=== PATIENT | male | born 1945 | race African-American/Black ===

== ENCOUNTER 2020-04-10 03:21 | Inpatient (IN) | payer MEDICARE, MEDICAID ==
[2020-04-10 03:56] LABS: #Eosinphils 0.3 thou/uL (0.0-0.7); #Lymphocytes 1.2 thou/uL (1.20-3.40); #Monocytes 0.5 thou/uL (0.11-0.59); #Neutrophils 3.3 thou/uL (1.40-6.50); %Basophils 0.9 % (0.0-1.0); %Eosinophils 5.4 % (0.0-10.0); %Lymphocytes 21.7 % (21.0-51.0); %Monocytes 10.1 % (0.0-10.0); %Neutrophils 61.9 % (42.0-75.0); Hemoglobin 9.3 g/dL (14.0-18.0); Mean Corpuscular HGB CONC 32.3 g/dL (32.0-36.0); Mean Corpuscular Hemoglobin 28.6 pg (27.0-31.0); Mean Corpuscular Volume 88.3 fL (78.0-98.0); Mean Platelet Volume 7.6 fL (7.4-10.4); Platelet Count 196 thou/uL (130-400); RBC Distribution Width 13.1 % (11.5-14.5); Red Blood Cell (RBC) Count 3.24 mill/uL (4.70-6.10); White Blood Cell (WBC) Count 5.4 thou/uL (4.8-10.8)
[2020-04-10 04:32] LABS: Bilirubin Negative (Negative); Blood, Urine Trace (Negative); Clarity Clear (Clear); Glucose, Urine (Dipstick) Normal (Negative); Leukocyte 500 Leu/uL (Negative); Mucous/LPF Rare LPF (<2+); Nitrite 2+ (Negative); Protein, Urine (Dipstick) Negative (Neg-Trace); Squamous Epithelial 0-3 HPF (0-3); Urobilinogen Normal mg/dL (Less than 2); WBC/HPF Greater than 50 HPF (0-3)
[2020-04-10 04:33] LABS: Bacteria/HPF 1+ HPF (None Seen)
[2020-04-10] MEDS ORDERED: cefTRIAXone\\ROCEPHIN 2 GM VIAL ONE (05:00)
[2020-04-10] MEDS ORDERED: Acetaminophen 650 MG Suppository PR PRN (05:39)
[2020-04-10] MEDS ORDERED: Acetaminophen 325 MG TAB PO PRN (05:39)
--- NOTE | 2020-04-10 05:52 | PDOC.HHP ---
Hospitalist HPI - History of Present Illness altered mental status History of Present Illness: Case of an 74y/o male with pmhx of av block s/p ppm, afib not in anticoagulation, dm , htn, hx of hemorragic stroke with retaining deficiet and seziures after bleeding episode who comes to hospital brought by ems due to altered mental status. most of the h/p was obtain from ems and er records, at the moment of my evaluation no family members were present pt w severe speech impediments which the [facility] was called and refered thats his baseline. apparently [facility] personal thought patient was having a seizures and called ems, they found patient was not having a seizures but was with altered mental status for which they decided to bring to hospital, on route patient appered to have an episode of vtach but upon evaluation by ed physicians it was found that patient did not actually had vtach and was his normal pacing. apparently pt is aox3 at [facility], patient was able to answer yes and no to simple questions but communication was very limited. Hospitalist ROS - Review of Systems ROS unobtainable: due to mental status Hospitalist History - Past Medical History Cardiac: reports: HTN, Hyperlipidemia Pulmonary: reports: CVA/TIA/stroke, high cholesterol Endocrine: reports: Diabetes - Exam General Appearance: NAD, awake alert Eye: PERRL, anicteric sclera ENT: normocephalic atraumatic, no oropharyngeal lesions Neck: supple, symmetric, no JVD, no thyromegaly Heart: RRR, no murmur, no gallops Respiratory: CTAB, no wheezes, no rales, no ronchi Gastrointestinal: soft, non-tender, non-distended, normal bowel sounds Extremities: no cyanosis, no clubbing, no edema Skin: normal turgor, no lesions, no rashes Neurological: no new deficit, facial droop, hemiplegia, speech deficit Musculoskeletal: generalized weakness Psychiatric: normal affect, oriented to person Hospitalist Results - Labs Result Diagrams: 04/10/20 03:41 04/10/20 03:41 Lab results: WBC 5.4 thou/uL (4.8-10.8) 04/10/20 03:41 Hgb 9.3 g/dL (14.0-18.0) L 04/10/20 03:41 Hct 28.6 % (42.0-52.0) L 04/10/20 03:41 MCV 88.3 fL (78.0-98.0) 04/10/20 03:41 Plt Count 196 thou/uL (130-400) 04/10/20 03:41 Neutrophils % 61.9 % (42.0-75.0) 04/10/20 03:41 Sodium Cancelled 04/10/20 03:41 Potassium Cancelled 04/10/20 03:41 Chloride Cancelled 04/10/20 03:41 Carbon Dioxide Cancelled 04/10/20 03:41 BUN Cancelled 04/10/20 03:41 Creatinine Cancelled 04/10/20 03:41 Glucose Cancelled 04/10/20 03:41 Calcium Cancelled 04/10/20 03:41 Total Bilirubin Cancelled 04/10/20 03:41 AST Cancelled 04/10/20 03:41 ALT Cancelled 04/10/20 03:41 Alkaline Phosphatase Cancelled 04/10/20 03:41 Troponin I Less than 0.010 ng/mL (< 0.028) 04/10/20 03:41 B-Natriuretic Peptide 25.1 pg/mL (0-100) 04/10/20 03:41 Serum Total Protein Cancelled 04/10/20 03:41 Albumin Cancelled 04/10/20 03:41 Urine Ketones Negative mg/dL (Negative) 04/10/20 04:18 Urine Blood Trace (Negative) A 04/10/20 04:18 Urine Nitrite 2+ (Negative) A 04/10/20 04:18 Ur Leukocyte Esterase 500 Joe/uL (Negative) A 04/10/20 04:18 Urine RBC 11-20 HPF (0-3) A 04/10/20 04:18 Urine WBC Greater than 50 HPF (0-3) A 04/10/20 04:18 Ur Squamous Epith Cells 0-3 HPF (0-3) 04/10/20 04:18 Urine Bacteria 1+ HPF (None Seen) A 04/10/20 04:18 - EKG Interpretation EKG: paced - Radiology Interpretation CT scan - head Additional Comment: no acute pathology Hospitalist H&P A/P - Problem (1) Altered mental state Code(s): R41.82 - ALTERED MENTAL STATUS, UNSPECIFIED Status: Acute (2) UTI (urinary tract infection) Status: Acute Qualifiers: Indwelling urinary catheter type: indwelling urethral catheter Encounter type: subsequent encounter (3) AV dissociation Code(s): I45.89 - OTHER SPECIFIED CONDUCTION DISORDERS Status: Acute (4) CKD (chronic kidney disease) stage 3, GFR 30-59 ml/min Status: Chronic (5) Cerebral vascular accident Code(s): I63.9 - CEREBRAL INFARCTION, UNSPECIFIED Status: Chronic Qualifiers: CVA mechanism: other (6) Diabetes mellitus type 2 in obese Code(s): E11.9 - TYPE 2 DIABETES MELLITUS WITHOUT COMPLICATIONS; E66.9 - OBESITY , UNSPECIFIED Status: Chronic (7) Hypertension Code(s): I10 - ESSENTIAL (PRIMARY) HYPERTENSION Status: Chronic Qualifiers: Hypertension type: essential hypertension Qualified Code(s): I10 - Essential (primary) hypertension (8) Renal disease Code(s): N28.9 - DISORDER OF KIDNEY AND URETER, UNSPECIFIED Status: Chronic - Plan Plan: - admit as obs - r/o metabolic causes of altered mental state w cmp, tsh, b12 and ammonia, likely secondary to uti - rocephin for uti - f/u urine / blood cultures - iv hydration - continue home meds for chronic conditions
[2020-04-10] MEDS ORDERED: Dextrose 5% in Water 1,000 ML IV PRN (06:13)
[2020-04-10] MEDS ORDERED: HumaLOG 300 UNITS/3 ML VIAL SC PRN (06:13)
[2020-04-10] MEDS ORDERED: Dextrose 50% Abboject 50 ML SYRINGE SLOW IVP PRN (06:13)
[2020-04-10 06:14] LABS: ALT (SGPT) 19 U/L (8-55); AST (SGOT) 17 U/L (5-34); Albumin 3.6 g/dL (3.4-4.8); Alkaline Phosphatase 111 U/L (40-110); Anion Gap 11 mmol/L (10-20); BUN (Urea Nitrogen) 16 mg/dL (8.4-25.7); Bilirubin, Total 0.2 mg/dL (0.2-1.2); Calc. Creatinine Clearance 0 mL/min (70-130); Calcium 8.3 mg/dL (7.8-10.44); Carbon Dioxide 27 mmol/L (23-31); Chloride 107 mmol/L (98-107); Estimated GFR-MDRD Greater than 90; Glucose 117 mg/dL (83-110); Magnesium 1.9 mg/dL (1.6-2.6); Potassium 3.9 mmol/L (3.5-5.1); Protein, Total 6.6 g/dL (5.8-8.1); Sodium 141 mmol/L (136-145)
[2020-04-10 07:14] VITALS: BMI 32.8
[2020-04-10] MEDS ORDERED: Prevnar 13-Val Conj/PF 0.5 ML SYRINGE IM ONE (07:15)
--- NOTE | 2020-04-10 07:57 | CT ---
PRELIMINARY REPORT/[facility]/EMERGENCY AFTER HOURS PROCEDURE EXAM: CT BRAIN WO CON HISTORY: Arrhythmia; initial call for seizures, r sided facial droop, r sided movement impaired, pt n ot verbalizing which isn't normal COMPARISON: None FINDINGS: Encephalomalacia within the left temporal and parietal lobes, with commensurate enlargement of the le ft lateral ventricle, most pronounced at the temporal horn. There is diffuse white matter low attenuation throughout the left parietal and frontal lobe white mat ter. No intraventricular, intraparenchymal or extra-axial hemorrhage. Vascular calcifications at the intracranial ICAs. Paranasal sinuses and mastoid air cells are clear. Postsurgical change at the left temporoparietaloccipital calvarium. No acute abnormality of the calvarium. No focal scalp swelling. IMPRESSION: Postsurgical change with encephalomalacia involving the left temporal and parietal lobes , with commensurate enlargement of the left lateral ventricle. There is additional hypodensity extending within the left parietal and frontal lobes. These findings limit the CT evaluation for acu te ischemia. If there is clinical concern, recommend further evaluation with MRI to evaluate for focal acute restricted diffusion. ELECTRONICALLY SIGNED BY: Nahomi Choi MD Apr 10, 2020 3:56:06 AM CDT This report is intended for review by the ordering physician only, in accordance of law. If you recei ve this report in error, please call [facility] at [phone]. FINAL REPORT Exam: Head CT without contrast HISTORY: Altered mental status. Right facial droop. Decreased movement on the right side. COMPARISON: 07/01/2015 FINDINGS: Hemorrhage: No intraparenchymal hemorrhage or extra-axial hematoma. Brain parenchyma: Stable encephalomalacia and gliosis involving the left cerebrum. Associated ex vacu o dilatation of ventricular system.Stable white matter hypodensities suggesting gliosis and chronic small vessel ischemic change Ventricular system: No hydrocephalus Calvarium: Intact. Stable postoperative changes of the left calvarium. Sinuses and mastoid air cells: Adequate aeration. IMPRESSION: 1. This report is in agreement with initial report by [facility]. 2. No acute intracranial process. 2. Sequelae of remote left MCA distribution infarct. Transcribed Date/Time: 04/10/2020 9:16 AM
--- NOTE | 2020-04-10 08:14 | RAD ---
Exam: Chest one view HISTORY:Altered mental status Comparison: 07/31/2016 FINDINGS: Pacing device: External pacer pad is noted. There is a stable left-sided transvenous pacemaker with l ead positioned over the right atrium and right ventricle Cardiac silhouette:Stable cardiac silhouette. Stable vascular stent. Aorta: Unremarkable Pulmonary vessels: Normal Costophrenic angles: Clear LUNGS: Diminished lung volumes due to poor inspiratory effort. Possible subtle opacity in the left za ng base. Pneumothorax: None Osseous abnormalities: None IMPRESSION: Diminished lung volumes due to poor inspiratory effort. Subtle opacity in the left lung b ase.
[2020-04-10] MEDS: Enoxaparin Sodium 30 MG/0.3 ML SYRINGE SC SCH (08:41)
[2020-04-10] MEDS: Sodium Chloride 0.9% 1,000 ML IV SCH (08:43)
[2020-04-10] MEDS ORDERED: Enoxaparin Sodium 40 MG/0.4 ML SYRINGE SC SCH (09:00)
[2020-04-10] MEDS: Aspirin 81 mg Enteric Coated Tablet PO SCH (12:02)
[2020-04-10] MEDS: carBAMazepine 200 MG TAB PO SCH ×3 (12:03→20:50)
--- NOTE | 2020-04-10 12:45 | PDOC.HOSPP ---
- Subjective Encounter Date: 04/10/20 Encounter Time: 12:00 Subjective: awake, smiles and says yes moves left extremities well - Objective Vital Signs & Weight: Vital Signs (12 hours) Temp Pulse Resp BP Pulse Ox 04/10/20 12:32 97.6 F 70 16 137/69 97 04/10/20 12:17 97.6 F 70 16 137/69 97 04/10/20 06:15 98.0 F 82 18 193/93 H 100 Weight Weight 209 lb 11.2 oz Result Diagrams: 04/10/20 03:41 04/10/20 05:22 Additional Labs: Accuchecks 04/10/20 04/10/20 10:52 07:12 POC Glucose 99 110 Hospitalist ROS - Medication Medications: Active Medications Generic Name Dose Route Start Last Admin Trade Name Freq PRN Reason Stop Dose Admin Aspirin 81 mg 04/10/20 09:00 04/10/20 12:02 Ecotrin PO 81 mg DAILY COOPER Administration Carbamazepine 200 mg 04/10/20 09:00 04/10/20 12:03 Tegretol PO 200 mg TID COOPER Administration Enoxaparin Sodium 30 mg 04/10/20 09:00 04/10/20 08:41 Lovenox SC 30 mg 0900 COOPER Administration Sodium Chloride 1,000 mls @ 50 mls/hr 04/10/20 05:45 04/10/20 08:43 Normal Saline 0.9% IV 1,000 mls .Q20H COOPER Administration Sodium Chloride 10 ml 04/10/20 09:00 04/10/20 08:42 Flush - Normal Saline IVF 10 ml Q12HR COOPER Administration - Exam General Appearance: awake alert Eye: PERRL, anicteric sclera ENT: no oropharyngeal lesions, dry oral mucosa Neck: supple, no JVD Heart: RRR, no murmur Respiratory: no wheezes, no rales Gastrointestinal: soft, non-tender, non-distended, normal bowel sounds Extremities: no edema Neurological: hemiplegia Neurological - other findings: right hemiplegia, aphasia Hosp A/P (1) UTI (urinary tract infection) Status: Acute Qualifiers: Urinary tract infection type: acute cystitis Hematuria presence: without hematuria Qualified Code(s): N30.00 - Acute cystitis without hematuria (2) Acute metabolic encephalopathy Code(s): G93.41 - METABOLIC ENCEPHALOPATHY Status: Acute (3) H/O: CVA (cerebrovascular accident) Code(s): Z86.73 - PRSNL HX OF TIA (TIA), AND CEREB INFRC W/O RESID DEFICITS Status: Chronic (4) Diabetes mellitus type 2 in obese Code(s): E11.9 - TYPE 2 DIABETES MELLITUS WITHOUT COMPLICATIONS; E66.9 - OBESITY , UNSPECIFIED Status: Chronic (5) Hypertension Code(s): I10 - ESSENTIAL (PRIMARY) HYPERTENSION Status: Chronic Qualifiers: Hypertension type: essential hypertension Qualified Code(s): I10 - Essential (primary) hypertension (6) Obesity (BMI 30.0-34.9) Code(s): E66.9 - OBESITY, UNSPECIFIED Status: Acute (7) Chronic anemia Code(s): D64.9 - ANEMIA, UNSPECIFIED Status: Chronic - Plan await culture results is on ceftriaxone speech has cleared him for pureed diet appears to be at his baseline, this was confirmed with staff talking to his nursing staff members I tried calling his spouse and grandkids phone number there is no response hemostable continue other meds as above
[2020-04-10] MEDS: Insulin Glargine 10 UNITS in Pre-Filled Syringe 1 EACH SC SCH (20:49)
[2020-04-10] MEDS: Rosuvastatin 20 MG TAB PO SCH (20:50)
[2020-04-11] MEDS: Sodium Chloride 0.9% 1,000 ML IV SCH (03:14)
[2020-04-11] MEDS ORDERED: cefTRIAXone\\ROCEPHIN 2 GM in Sodium Chloride 0.9% 100 ML IVPB SCH (05:00)
[2020-04-11] MEDS ORDERED: cefTRIAXone\\ROCEPHIN 2 GM VIAL ONE (05:16)
--- NOTE | 2020-04-11 07:39 | PDOC.HOSPP ---
- Subjective Encounter Date: 04/11/20 Encounter Time: 09:15 Subjective: Patient awake and alert, has slurred speech but does respond appropriately. No complaints. Seems happy and in no distress. - Objective Vital Signs & Weight: Vital Signs (12 hours) Temp Pulse Resp BP Pulse Ox 04/11/20 07:23 98.2 F 68 20 170/75 H 97 04/11/20 03:20 97.9 F 77 16 124/67 98 04/11/20 00:28 98.8 F 89 14 140/66 100 Weight Weight 209 lb 11.2 oz I&O: 04/10/20 04/11/20 04/12/20 06:59 06:59 06:59 Intake Total 600 Balance 600 Result Diagrams: 04/10/20 03:41 04/10/20 05:22 Additional Labs: Accuchecks 04/11/20 04/10/20 04/10/20 03:06 20:19 17:14 POC Glucose 99 140 H 130 H 04/10/20 10:52 POC Glucose 99 Hospitalist ROS - Review of Systems ROS unobtainable: due to mental status - Medication Medications: Active Medications Generic Name Dose Route Start Last Admin Trade Name Freq PRN Reason Stop Dose Admin Acetaminophen 650 mg 04/10/20 05:39 04/10/20 20:55 Tylenol PO 650 mg Q4H PRN Administration Headache/Fever/Mild Pain (1-3) Aspirin 81 mg 04/10/20 09:00 04/10/20 12:02 Ecotrin PO 81 mg DAILY COOPER Administration Carbamazepine 200 mg 04/10/20 09:00 04/10/20 20:50 Tegretol PO 200 mg TID COOPER Administration Enoxaparin Sodium 30 mg 04/10/20 09:00 04/10/20 08:41 Lovenox SC 30 mg 0900 COOPER Administration Sodium Chloride 1,000 mls @ 50 mls/hr 04/10/20 05:45 04/11/20 03:14 Normal Saline 0.9% IV Not Given .Q20H COOPER Ceftriaxone Sodium 2 gm/ 100 mls @ 200 mls/hr 04/11/20 05:00 04/11/20 06:16 Sodium Chloride IVPB 100 mls Q24HR COOPER Administration Insulin Glargine 10 units/ 0.1 mls @ 0 mls/hr 04/10/20 21:00 04/10/20 20:49 Miscellaneous Medication SC 0.1 mls HS COOPER Administration Rosuvastatin Calcium 20 mg 04/10/20 21:00 04/10/20 20:50 Crestor PO 20 mg HS COOPER Administration Sodium Chloride 10 ml 04/10/20 09:00 04/10/20 20:50 Flush - Normal Saline IVF 10 ml Q12HR COOPER Administration - Exam General Appearance: NAD, awake alert Heart: RRR, no murmur, no gallops, no rubs Respiratory: CTAB, no wheezes, no rales, no ronchi Gastrointestinal: soft, non-tender, non-distended, normal bowel sounds Psychiatric: normal affect, normal behavior Psychiatric - other findings: slurred speech, mostly 1-2 word answers Hosp A/P (1) UTI (urinary tract infection) Status: Acute Qualifiers: Urinary tract infection type: acute cystitis Hematuria presence: without hematuria Qualified Code(s): N30.00 - Acute cystitis without hematuria (2) Acute metabolic encephalopathy Code(s): G93.41 - METABOLIC ENCEPHALOPATHY Status: Acute (3) H/O: CVA (cerebrovascular accident) Code(s): Z86.73 - PRSNL HX OF TIA (TIA), AND CEREB INFRC W/O RESID DEFICITS Status: Chronic (4) Diabetes mellitus type 2 in obese Code(s): E11.9 - TYPE 2 DIABETES MELLITUS WITHOUT COMPLICATIONS; E66.9 - OBESITY , UNSPECIFIED Status: Chronic (5) Hypertension Code(s): I10 - ESSENTIAL (PRIMARY) HYPERTENSION Status: Chronic Qualifiers: Hypertension type: essential hypertension Qualified Code(s): I10 - Essential (primary) hypertension (6) Obesity (BMI 30.0-34.9) Code(s): E66.9 - OBESITY, UNSPECIFIED Status: Chronic (7) Chronic anemia Code(s): D64.9 - ANEMIA, UNSPECIFIED Status: Chronic - Plan await culture results- likely take another couple days. 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 Hx of PCN and FQ resistance several years ago Will try switch to oral abx and possibly back to jail tomorrow speech has cleared him for pureed diet appears to be at his baseline, this was confirmed with staff talking to his nursing staff members Tried calling his spouse and [employer] phone number there is no response hemostable continue other meds as above
[2020-04-11] MEDS ORDERED: Guaifenesin DM 100-10/5 ML UDCUP PO PRN (07:41)
[2020-04-11] MEDS ORDERED: Bisacodyl 10 MG SUPP PR PRN (07:41)
[2020-04-11] MEDS ORDERED: Senokot 8.6 MG TAB PO PRN (07:41)
[2020-04-11] MEDS ORDERED: Mag-Al Plus 1200 MG/1200 MG/120 MG/30 ML UDCUP PO PRN (07:41)
[2020-04-11] MEDS ORDERED: Artificial Tear Sol 15 ML BOT EA EYE PRN (07:41)
[2020-04-11] MEDS: carBAMazepine 200 MG TAB PO SCH ×3 (08:32→21:27)
[2020-04-11] MEDS: Aspirin 81 mg Enteric Coated Tablet PO SCH (08:32)
[2020-04-11] MEDS: Ferrous Sulfate 325 MG TAB PO SCH ×3 (08:33→16:10)
[2020-04-11] MEDS: Furosemide 40 MG TAB PO SCH (08:33)
[2020-04-11] MEDS: Ascorbic Acid 500 mg Chewable Tablet PO SCH ×2 (08:33→21:27)
[2020-04-11] MEDS: Potassium Chloride 20 MEQ TAB PO SCH (08:33)
[2020-04-11] MEDS: hydrALAZINE 25 MG TAB PO SCH ×3 (08:33→21:27)
[2020-04-11] MEDS: Multivit, Therapeutic 1 TAB PO SCH (08:33)
[2020-04-11] MEDS: Enoxaparin Sodium 30 MG/0.3 ML SYRINGE SC SCH (08:34)
[2020-04-11] MEDS: Polyethylene Glycol 3350 17 GM Packet PO SCH (08:34)
[2020-04-11] MEDS: Dorzolamide HCl 2% Ophth Soln 10 ml Bottle EA EYE SCH ×2 (12:20→21:24)
[2020-04-11] MEDS ORDERED: Latanoprost 0.005% Ophth Soln 2.5 ml Bottle L EYE SCH (21:00)
[2020-04-11] MEDS: Cefdinir 300 MG CAP PO SCH (21:26)
[2020-04-11] MEDS: Nitrofurantoin Monohyd/M-Cryst 100 MG CAP PO SCH (21:27)
[2020-04-11] MEDS: Rosuvastatin 20 MG TAB PO SCH (21:27)
[2020-04-11] MEDS: Insulin Glargine 10 UNITS in Pre-Filled Syringe 1 EACH SC SCH (21:36)
[2020-04-12] MEDS: Sodium Chloride 0.9% 1,000 ML IV SCH (05:55)
--- NOTE | 2020-04-12 08:01 | PDOC.HOSPP ---
- Subjective Encounter Date: 04/12/20 Encounter Time: 11:15 Subjective: Patient minimally verbal, hard to understand. Did say he was doing fine. Got a little upset when told he is going back to the care home today. No events overnight. - Objective Vital Signs & Weight: Vital Signs (12 hours) Temp Pulse Resp BP BP Pulse Ox 04/12/20 04:05 97.6 F 62 18 176/80 H 96 04/12/20 00:10 97.6 F 68 19 164/79 H 100 04/11/20 21:30 98 04/11/20 21:27 73 154/74 H 04/11/20 20:50 98.4 F 64 17 180/82 H 98 Weight Weight 209 lb 11.2 oz I&O: 04/11/20 04/12/20 04/13/20 06:59 06:59 06:59 Intake Total 600 Balance 600 Result Diagrams: 04/10/20 03:41 04/10/20 05:22 Additional Labs: Accuchecks 04/12/20 04/11/20 04/11/20 06:08 20:25 16:21 POC Glucose 74 123 H 94 04/11/20 04/11/20 11:04 06:27 POC Glucose 90 91 Hospitalist ROS - Review of Systems ROS unobtainable: due to mental status - Medication Medications: Active Medications Generic Name Dose Route Start Last Admin Trade Name Freq PRN Reason Stop Dose Admin Acetaminophen 650 mg 04/10/20 05:39 04/10/20 20:55 Tylenol PO 650 mg Q4H PRN Administration Headache/Fever/Mild Pain (1-3) Ascorbic Acid 500 mg 04/11/20 09:00 04/11/20 21:27 Vitamin C PO 500 mg BID COOPER Administration Aspirin 81 mg 04/10/20 09:00 04/11/20 08:32 Ecotrin PO 81 mg DAILY COOPER Administration Carbamazepine 200 mg 04/10/20 09:00 04/11/20 21:27 Tegretol PO 200 mg TID COOPER Administration Cefdinir 300 mg 04/11/20 21:00 04/11/20 21:26 Omnicef PO 300 mg BID COOPER Administration Cholecalciferol 2,000 units 04/11/20 09:00 04/11/20 08:33 Vitamin D3 PO 2,000 units DAILY COOPER Administration Dorzolamide HCl 1 drop 04/11/20 09:00 04/11/20 21:24 Trusopt 2% Ophth Soln EA EYE 1 drop BID COOPER Administration Enoxaparin Sodium 30 mg 04/10/20 09:00 04/11/20 08:34 Lovenox SC 30 mg 0900 COOPER Administration Ferrous Sulfate 325 mg 04/11/20 08:00 04/11/20 16:10 Feosol PO 325 mg TID-WM COOPER Administration Furosemide 40 mg 04/11/20 09:00 04/11/20 08:33 Lasix PO 40 mg DAILY COOPER Administration Hydralazine HCl 25 mg 04/11/20 09:00 04/11/20 21:27 Apresoline PO 25 mg TID COOPER Administration Sodium Chloride 1,000 mls @ 50 mls/hr 04/10/20 05:45 04/12/20 05:55 Normal Saline 0.9% IV 1,000 mls .Q20H COOPER Administration Insulin Glargine 10 units/ 0.1 mls @ 0 mls/hr 04/10/20 21:00 04/11/20 21:36 Miscellaneous Medication SC 0.1 mls HS COOPER Administration Latanoprost 1 drop 04/11/20 21:00 04/11/20 21:37 Xalatan 0.005% Ophth Soln L EYE 1 drop HS COOPER Administration Multivitamins 1 tab 04/11/20 09:00 04/11/20 08:33 Theragran PO 1 tab DAILY COOPER Administration Nitrofurantoin Macrocrystals 100 mg 04/11/20 21:00 04/11/20 21:27 Macrobid PO 100 mg BID COOPER Administration Pantoprazole Sodium 40 mg 04/11/20 21:00 04/11/20 21:26 Protonix PO 40 mg HS COOPER Administration Polyethylene Glycol 17 gm 04/11/20 09:00 04/11/20 08:34 Miralax PO Not Given DAILY COOPER Potassium Chloride 20 meq 04/11/20 08:00 04/11/20 08:33 K-Dur PO 20 meq QAM-WM COOPER Administration Rosuvastatin Calcium 20 mg 04/10/20 21:00 04/11/20 21:27 Crestor PO 20 mg HS COOPER Administration Sodium Chloride 10 ml 04/10/20 09:00 04/11/20 21:37 Flush - Normal Saline IVF 10 ml Q12HR COOPER Administration - Exam General Appearance: NAD, awake alert ENT: moist mucosa Heart: RRR, no murmur, no gallops, no rubs Respiratory: CTAB, no wheezes, no rales, no ronchi Gastrointestinal: soft, non-tender, non-distended, normal bowel sounds Neurological - other findings: facial droop, slurred speech Psychiatric: normal affect Hosp A/P (1) UTI (urinary tract infection) Status: Acute Qualifiers: Urinary tract infection type: acute cystitis Hematuria presence: without hematuria Qualified Code(s): N30.00 - Acute cystitis without hematuria (2) Acute metabolic encephalopathy Code(s): G93.41 - METABOLIC ENCEPHALOPATHY Status: Acute (3) H/O: CVA (cerebrovascular accident) Code(s): Z86.73 - PRSNL HX OF TIA (TIA), AND CEREB INFRC W/O RESID DEFICITS Status: Chronic (4) Diabetes mellitus type 2 in obese Code(s): E11.9 - TYPE 2 DIABETES MELLITUS WITHOUT COMPLICATIONS; E66.9 - OBESITY , UNSPECIFIED Status: Chronic (5) Hypertension Code(s): I10 - ESSENTIAL (PRIMARY) HYPERTENSION Status: Chronic Qualifiers: Hypertension type: essential hypertension Qualified Code(s): I10 - Essential (primary) hypertension (6) Obesity (BMI 30.0-34.9) Code(s): E66.9 - OBESITY, UNSPECIFIED Status: Chronic (7) Chronic anemia Code(s): D64.9 - ANEMIA, UNSPECIFIED Status: Chronic - Plan Ecoli in urine sensitive to Rocephin and Bactrim, resistant to Nitrofurantoin and Cipro. Will switch to Bactrim for 10 more days and d/c back to the care home. speech has cleared him for pureed diet appears to be at his baseline now, this was confirmed with staff talking to his nursing staff members Tried calling his spouse and grandkids phone number there is no response hemostable continue other meds as above
[2020-04-12] MEDS: Polyethylene Glycol 3350 17 GM Packet PO SCH (08:37)
[2020-04-12] MEDS: Cefdinir 300 MG CAP PO SCH (08:39)
[2020-04-12] MEDS: Ascorbic Acid 500 mg Chewable Tablet PO SCH (08:39)
[2020-04-12] MEDS: hydrALAZINE 25 MG TAB PO SCH ×2 (08:39→14:38)
[2020-04-12] MEDS: Aspirin 81 mg Enteric Coated Tablet PO SCH (08:39)
[2020-04-12] MEDS: Nitrofurantoin Monohyd/M-Cryst 100 MG CAP PO SCH (08:39)
[2020-04-12] MEDS: Ferrous Sulfate 325 MG TAB PO SCH ×2 (08:40→12:12)
[2020-04-12] MEDS: Multivit, Therapeutic 1 TAB PO SCH (08:40)
[2020-04-12] MEDS: Furosemide 40 MG TAB PO SCH (08:40)
[2020-04-12] MEDS: Potassium Chloride 20 MEQ TAB PO SCH (08:40)
[2020-04-12] MEDS: carBAMazepine 200 MG TAB PO SCH ×2 (08:40→14:38)
[2020-04-12] MEDS: Dorzolamide HCl 2% Ophth Soln 10 ml Bottle EA EYE SCH (08:42)
[2020-04-12] MEDS: Enoxaparin Sodium 30 MG/0.3 ML SYRINGE SC SCH (08:42)
[2020-04-12 11:44] VITALS: TEMP 97.9
[2020-04-12 16:15] VITALS: BP 169/77
[2020-04-12] MEDS ORDERED: Sulfameth/Trimethoprim DS 800-160mg TAB PO SCH (21:00)
--- NOTE | 2020-04-16 14:38 | EKG ---
Test Reason : Blood Pressure : / mmHG Vent. Rate : 085 BPM Atrial Rate : 085 BPM P-R Int : 206 ms QRS Dur : 072 ms QT Int : 342 ms P-R-T Axes : 081 -60 065 degrees QTc Int : 406 ms Sinus rhythm with Fusion complexes Left axis deviation Inferior infarct , age undetermined Cannot rule out Anterior infarct , age undetermined Abnormal ECG Confirmed by YEISON MCKEON ([id number]), metropolitan editor BRETT SEYMOUR ([id number]) on 04/16/2020 2:38:46 PM Referred By: Confirmed By:YEISON MCKEON
== END 2020-04-12 16:58 | DRG 689 ==
LOC: ERS 03:21 → 2SE 06:39 → OBSVTOIN 04-11 17:57
PROVIDERS: ADMIT Internal Medicine; ATTEND Emergency Medicine
DX: N30.00 Acute cystitis without hematuria (principal); G93.41 Metabolic encephalopathy; I45.89 Other specified conduction disorders; I69.351 Hemiplegia and hemiparesis following cerebral infarction affecting right dominant side; E78.5 Hyperlipidemia, unspecified; E78.00 Pure hypercholesterolemia, unspecified; N18.3 Chronic kidney disease, stage 3 (moderate); I12.9 Hypertensive chronic kidney disease with stage 1 through stage 4 chronic kidney disease, or unspecified chronic kidney disease; E66.9 Obesity, unspecified; D63.1 Anemia in chronic kidney disease; B96.20 Unspecified Escherichia coli [E. coli] as the cause of diseases classified elsewhere; E11.22 Type 2 diabetes mellitus with diabetic chronic kidney disease; Z95.0 Presence of cardiac pacemaker; Z68.32 Body mass index [BMI] 32.0-32.9, adult; Z28.21 Immunization not carried out because of patient refusal; I69.320 Aphasia following cerebral infarction; Z79.899 Other long term (current) drug therapy; Z79.82 Long term (current) use of aspirin
CPT/HCPCS: 36415; 36416; 51701; 70450; 71045; 80053; 81003; 81015; 82140; 82607; 83605; 83735; 83880; 84443; 84484; 85025; 87040; 87086; 87186; 87324; 87449; 93005; 96361; 96365; 96372; G0378; J0696; J1650; J1815; J3490

== ENCOUNTER 2020-07-10 15:29 | Emergency (ER) | payer MEDICARE, MEDICAID ==
--- NOTE | 2020-07-10 16:40 | RAD ---
Exam: Chest one view HISTORY:Cough Comparison: 04/10/2020 FINDINGS: Cardiac silhouette:Normal cardiac silhouette. Stable dual lead left-sided transvenous pacemaker Aorta: Unremarkable Pulmonary vessels: Normal Costophrenic angles: Clear LUNGS: No masses or consolidation. Pneumothorax: None Osseous abnormalities: No acute osseous abnormalities. Stable stent projects over the right axilla. IMPRESSION: No acute cardiopulmonary process.
== END 2020-07-10 18:17 | disposition home or self-care (01) ==
LOC: ERS 15:29
DX: J06.9 Acute upper respiratory infection, unspecified (principal); E11.9 Type 2 diabetes mellitus without complications; I48.91 Unspecified atrial fibrillation; E78.5 Hyperlipidemia, unspecified; I10 Essential (primary) hypertension; Z79.899 Other long term (current) drug therapy; Z79.82 Long term (current) use of aspirin
CPT/HCPCS: 71045; 94760

== ENCOUNTER 2020-08-09 11:22 | Inpatient (IN) | payer MEDICARE, MEDICAID, OTHER ==
--- NOTE | 2020-08-09 11:48 | RAD ---
XR Chest 1 View Portable HISTORY: Altered mental status COMPARISON: 07/10/2020 FINDINGS: The heart size is normal. Left-sided pacemaker device remains in place. Vascular stents in the left upper extremity are again seen. The aorta is tortuous. The lungs are well expanded without focal areas of consolidation, pneumothorax or pleural effusions. IMPRESSION: No radiographic evidence of acute cardiopulmonary process.
[2020-08-09 12:53] LABS: #Eosinphils 0.4 thou/uL (0.0-0.7); #Monocytes 0.8 thou/uL (0.11-0.59); #Neutrophils 10.4 thou/uL (1.40-6.50); %Basophils 0.1 % (0.0-1.0); %Eosinophils 2.7 % (0.0-10.0); %Lymphocytes 14.5 % (21.0-51.0); %Monocytes 5.7 % (0.0-10.0); Hemoglobin 13.3 g/dL (14.0-18.0); Hypochromia SLIGHT = 6-15 cells (100X) (0-5/hpf); MDiff Complete? YES; Mean Corpuscular HGB CONC 29.1 g/dL (32.0-36.0); Mean Corpuscular Hemoglobin 26.8 pg (27.0-31.0); Mean Corpuscular Volume 92.1 fL (78.0-98.0); Mean Platelet Volume 8.8 fL (7.4-10.4); Platelet Count 303 thou/uL (130-400); Platelet Morphology Comment Appears Adequate; Polychromasia SLIGHT = 2-3 cells (100X) (0-2/hpf); RBC Distribution Width 14.3 % (11.5-14.5); Red Blood Cell (RBC) Count 4.96 mill/uL (4.70-6.10); White Blood Cell (WBC) Count 13.5 thou/uL (4.8-10.8)
[2020-08-09 13:02] LABS: ALT (SGPT) 16 U/L (8-55); AST (SGOT) 22 U/L (5-34); Albumin 3.7 g/dL (3.4-4.8); Alkaline Phosphatase 112 U/L (40-110); Anion Gap 16 mmol/L (10-20); BUN (Urea Nitrogen) 34 mg/dL (8.4-25.7); Bilirubin, Total 0.2 mg/dL (0.2-1.2); Calc. Creatinine Clearance 0 mL/min (70-130); Calcium 8.5 mg/dL (7.8-10.44); Carbon Dioxide 24 mmol/L (23-31); Chloride 129 mmol/L (98-107); Estimated GFR-MDRD 53; Globulin 3.3 g/dL (2.4-3.5); Glucose 156 mg/dL (83-110); Potassium 4.7 mmol/L (3.5-5.1); Sodium 164 mmol/L (136-145)
[2020-08-09 13:14] LABS: Bilirubin Negative (Negative); Blood, Urine Negative (Negative); Clarity Clear (Clear); Glucose, Urine (Dipstick) Normal (Negative); Ketone, Urine Negative (Negative); Leukocyte Negative Leu/uL (Negative); Nitrite Negative (Negative); Protein, Urine (Dipstick) Negative (Neg-Trace); Specific Gravity, Urine 1.014 (1.002-1.036); Urobilinogen Normal mg/dL (Less than 2)
[2020-08-09] MEDS ORDERED: Heparin 1,000 UNITS/ML VIAL ONE (14:33)
--- NOTE | 2020-08-09 14:47 | CT ---
CT BRAIN WITHOUT CONTRAST: 08/09/20 HISTORY: Altered mental status. COMPARISON: 04/10/20 FINDINGS: Changes of large old left MCA infarction with associated ex vacuo dilatation of the ventricular syste m are again seen. Changes of chronic small vessel ischemic disease is redemonstrated. No evidence of infarct, hemorrhage, midline shift, or abnormal extra-axial fluid collection is noted. There are postop changes of left sided craniotomy. No acute osseous abnormalities are noted. The vis ualized paranasal sinuses and mastoid air cells are well aerated. IMPRESSION: Chronic changes. No CT evidence of acute intracranial process. POS: [facility]
[2020-08-09 16:53] LABS: Phosphorus 3.2 mg/dL (2.3-4.7)
[2020-08-09 18:26] LABS: Lactic Acid 2.5 mmol/L (0.5-2.2)
[2020-08-09 18:36] LABS: Anion Gap 18 mmol/L (10-20); BUN (Urea Nitrogen) 35 mg/dL (8.4-25.7); Calc. Creatinine Clearance 0 mL/min (70-130); Calcium 8.5 mg/dL (7.8-10.44); Carbon Dioxide 25 mmol/L (23-31); Chloride 127 mmol/L (98-107); Estimated GFR-MDRD 54; Glucose 159 mg/dL (83-110); Potassium 4.2 mmol/L (3.5-5.1); Sodium 166 mmol/L (136-145)
[2020-08-09] MEDS ORDERED: Acetaminophen 325 MG TAB PO PRN (18:58)
[2020-08-09] MEDS ORDERED: Senokot S 8.6-50 MG TAB PO PRN (18:58)
[2020-08-09] MEDS ORDERED: Acetaminophen 650 MG Suppository PR PRN (18:58)
[2020-08-09] MEDS ORDERED: Loperamide HCl 2 MG CAP PO PRN (18:58)
[2020-08-09] MEDS ORDERED: Sodium Chloride 0.65% Nasal 44 ML BOT EA NARE PRN (18:58)
[2020-08-09] MEDS ORDERED: Guaifenesin DM 100-10/5 ML UDCUP PO PRN (18:58)
[2020-08-09] MEDS ORDERED: Diabetic Tussin 200 MG/10 ML UDCUP PO PRN (18:58)
[2020-08-09] MEDS ORDERED: hydrALAZINE 20 MG/ML VIAL SLOW IVP PRN (18:58)
[2020-08-09] MEDS ORDERED: Zolpidem Tartrate 5 MG TAB PO PRN (18:58)
[2020-08-09] MEDS ORDERED: Loratadine 10 MG TAB PO PRN (18:58)
[2020-08-09] MEDS ORDERED: Ondansetron PF 4 MG/2 ML Vial IVP PRN (18:58)
[2020-08-09] MEDS ORDERED: HYDROcodone/Acetaminophen 5/325 mg Tablet PO PRN (18:58)
[2020-08-09] MEDS ORDERED: Ondansetron ODT 4 MG TAB PO PRN (18:58)
[2020-08-09] MEDS ORDERED: Bisacodyl 10 MG SUPP PR PRN (18:58)
[2020-08-09] MEDS ORDERED: Insulin Regular 300 UNITS/3 ML VIAL SC PRN ×2 (20:13)
[2020-08-09] MEDS ORDERED: Dextrose 50% Abboject 50 ML SYRINGE SLOW IVP PRN (20:13)
[2020-08-09] MEDS: cefTRIAXone\\ROCEPHIN 1 GM in Sodium Chloride 0.9% 100 ML IVPB SCH (20:21)
[2020-08-09] MEDS: Famotidine/PF 20 mg/2ml Vial SLOW IVP SCH (20:21)
[2020-08-09] MEDS: Dextrose 5% in Water 1,000 ML IV SCH (20:21)
[2020-08-09] MEDS: Heparin 5,000 UNITS/ML VIAL SC SCH (20:22)
--- NOTE | 2020-08-09 20:51 | HP ---
PRIMARY CARE PHYSICIAN: Dr. Glover at [facility]. CHIEF COMPLAINT: Altered mentation. HISTORY OF PRESENT ILLNESS: The patient is a 75-year-old male, [facility] resident, was brought into the emergency room with altered mentation. He was found to be lethargic. His mentation has been gradually declining over the past few days. He was recently diagnosed with UTI and was started on doxycycline. His mentation got worse today, for which he was sent to the emergency room for evaluation. No information is available from the patient at this time. I spoke to the patient's son, contact #[phone], who is the DPOA. The patient is full code. The patient is wheelchair dependent. His speech is unclear. He is on pureed diet with nectar thick liquid. He is usually alert and responds appropriately most of the time per son. He is incontinent with urine and bowels. He requires assistance for most of his activities of daily living. PAST MEDICAL HISTORY: 1. History of hemorrhagic CVA with residual deficits as discussed above. 2. Paroxysmal atrial fibrillation. 3. Hyperlipidemia. 4. Hypertension. 5. Diabetes mellitus, type 2. 6. Complete heart block, requiring pacemaker placement in 2016. 7. Chronic anemia. 8. CKD, stage 2. The patient required dialysis in the past. 9. Seizure disorder. 10. GERD. 11. Swallow dysfunction. PAST SURGICAL HISTORY: 1. Pacemaker placement. 2. Hemodialysis access. 3. Left frontoparietal temporal craniotomy. 4. Tracheostomy and PEG tube placement. ALLERGIES: NO KNOWN DRUG ALLERGIES. FAMILY HISTORY: Negative for heart disease per previous record. SOCIAL HISTORY: As discussed above, he is a nonsmoker. CURRENT MEDICATIONS: At the nursing facility; 1. Tylenol as needed. 2. Aspirin 81 mg daily. 3. Crestor 20 mg daily. 4. Dorzolamide/timolol eyedrops daily. 5. Ferrous sulfate three times a day. 6. Hydralazine 25 mg three times daily. 7. Lasix 40 mg daily. 8. Toprol-XL 50 mg daily. 9. Omeprazole 20 mg daily. 10. Tegretol 200 mg three times a day. 11. Travatan Z one drop in both eyes at bedtime. 12. Vitamin C daily. 13. Vitamin D 1000 units daily. REVIEW OF SYSTEMS: Cannot be obtained from the patient due to current cognitive status. PHYSICAL EXAMINATION: VITAL SIGNS: In the emergency room, showed temperature 98.5, respiration of 20, pulse rate of 95, with a blood pressure of 113/71, with O2 saturation of 98% on room air. GENERAL: A 75-year-old male with altered mentation, lethargic, not following directions. HEENT: Head, atraumatic and normocephalic. Sclerae are anicteric. Dry mucous membrane. No oral lesion. NECK: Supple. No JVD. No neck stiffness. LUNGS: Showed diminished air entry at bilateral bases with no rales or rhonchi. No wheezing. No accessory muscle use. HEART: S1 and S2 present. Regular rate and rhythm. No rubs or gallops. ABDOMEN: Soft, nontender. Bowel sounds present. No rebound or guarding. EXTREMITIES: No edema or calf tenderness. NEUROLOGIC: Limited due to current mentation. PSYCHIATRIC: Limited due to current mentation. SKIN: Warm and dry. LYMPH NODES: No palpable lymph nodes in the neck. PERIPHERAL VASCULAR: Radial pulses palpable bilaterally. MUSCULOSKELETAL: No joint swelling or tenderness. LABORATORY FINDINGS: CBC showed WBC 13.5 with hemoglobin 13.3, hematocrit 45.6, platelets of 303. Chemistry showed sodium 166, potassium 4.2, chloride 127, bicarb 25, BUN 35, creatinine 1.53. Creatinine earlier was 1.55 with sodium 164 and chloride of 129. Lactic acid was 2.5. Serum osmolality 349. Urinalysis was negative for wbc or bacteria. Stool for occult blood was negative. Chest x-ray by my review was negative for infiltrate or edema. CT scan of the brain by my review showed chronic changes. EKG by my review showed sinus rhythm with first-degree AV block with nonspecific ST-T wave changes. Troponin was negative. Total bilirubin, AST, ALT in normal range. IMPRESSION: 1. Toxic metabolic encephalopathy, multifactorial. 2. Severe hyperosmolar hypernatremia. 3. Dehydration. 4. Acute kidney injury on chronic kidney disease, stage 2. 5. Recent urinary tract infection, completed antibiotics. 6. Swallow dysfunction. 7. History of hemorrhagic CVA. 8. Hypertension. 9. Hyperlipidemia. 10. Diabetes mellitus, type 2. 11. History of complete heart block, status post pacemaker. 12. Paroxysmal atrial fibrillation. 13. Chronic anemia. 14. Physical deconditioning. PLAN: A 75-year-old male with hemorrhagic CVA, currently [facility] resident, presenting with altered mentation. He has severe hypernatremia with elevated osmolality of 349. His sodium was 166 on admission. The patient will be monitored on the medical floor. Frequent neuro checks will be obtained. His CT scan of the brain is negative for acute findings. We will start him on D5 water at 75 mL. We will monitor labs closely. We will keep him n.p.o. for now. Check blood sugar every 4 to 6 hourly. We will resume home medications once the patient is able to tolerate p.o. Speech Therapy will be consulted. We will also consult Physical Therapy and Occupational Therapy. The patient will require 3 to 4 days for stabilization. We will gradually bring the sodium down. The family was updated. Job ID: [id number]
[2020-08-09] MEDS ORDERED: Famotidine 20 MG TAB PO SCH (21:00)
[2020-08-10 06:56] LABS: Phosphorus 3.5 mg/dL (2.3-4.7)
[2020-08-10 06:59] LABS: #Eosinphils 0.1 thou/uL (0.0-0.7); #Lymphocytes 1.5 thou/uL (1.20-3.40); #Monocytes 0.9 thou/uL (0.11-0.59); #Neutrophils 10.1 thou/uL (1.40-6.50); %Basophils 0.4 % (0.0-1.0); %Eosinophils 1.1 % (0.0-10.0); %Lymphocytes 11.8 % (21.0-51.0); %Monocytes 6.7 % (0.0-10.0); Hemoglobin 12.2 g/dL (14.0-18.0); Mean Corpuscular Hemoglobin 27.2 pg (27.0-31.0); Mean Corpuscular Volume 90.6 fL (78.0-98.0); Mean Platelet Volume 9.2 fL (7.4-10.4); Platelet Count 270 thou/uL (130-400); RBC Distribution Width 14.2 % (11.5-14.5); Red Blood Cell (RBC) Count 4.48 mill/uL (4.70-6.10); White Blood Cell (WBC) Count 12.6 thou/uL (4.8-10.8)
[2020-08-10 07:05] LABS: ALT (SGPT) 15 U/L (8-55); AST (SGOT) 16 U/L (5-34); Albumin 3.3 g/dL (3.4-4.8); Alkaline Phosphatase 101 U/L (40-110); Anion Gap 15 mmol/L (10-20); BUN (Urea Nitrogen) 37 mg/dL (8.4-25.7); Bilirubin, Total 0.2 mg/dL (0.2-1.2); Calc. Creatinine Clearance 25 mL/min (70-130); Calcium 8.2 mg/dL (7.8-10.44); Carbon Dioxide 24 mmol/L (23-31); Chloride 126 mmol/L (98-107); Estimated GFR-MDRD 50; Globulin 3.5 g/dL (2.4-3.5); Glucose 209 mg/dL (83-110); Magnesium 2.7 mg/dL (1.6-2.6); Potassium 3.7 mmol/L (3.5-5.1); Protein, Total 6.8 g/dL (5.8-8.1); Sodium 161 mmol/L (136-145)
[2020-08-10 08:30] LABS: Hypochromia SLIGHT = 6-15 cells (100X) (0-5/hpf); MDiff Complete? YES; Platelet Morphology Comment Appears Adequate
[2020-08-10] MEDS ORDERED: FLU VACC QS2020-21(65YR UP)/PF 240 MCG/0.7 ML SYRINGE IM ONE (09:00)
[2020-08-10] MEDS: Dextrose 5% in Water 1,000 ML IV SCH ×2 (10:43→22:00)
[2020-08-10] MEDS: Folic Acid 1 MG TAB PO SCH (10:43)
[2020-08-10] MEDS: Cyanocobalamin (Vitamin B-12) 1,000 MCG TAB PO SCH (10:43)
[2020-08-10] MEDS: Heparin 5,000 UNITS/ML VIAL SC SCH ×2 (10:44→21:00)
[2020-08-10 14:20] VITALS: BMI 26.8
--- NOTE | 2020-08-10 15:31 | PQF ---
CLINICAL DOCUMENTATION CLARIFICATION FORM: Dear Dr.M. Collins Date: 08/10/2020 Please exercise your independent, professional judgment in responding to the clarification form. Clinical indicators are provided on the bottom of this form for your review. Please check appropriate box(es): [ x ] Protein Calorie Malnutrition: [ ] Mild [ x ] Moderate [ ] Severe [ ] Other Malnutrition (please specify) [ ] Underweight without malnutrition [ ] Cachexia [ ] Other diagnosis [ ] Unable to determine In addition, please specify: Present on Admission (POA): [ x ] Yes [ ] No [ ] Unable to determine For continuity of documentation, please document condition throughout progress notes and discharge summary. Thank You. To be completed by CDI/Coding staff for physician review: CLINICAL INDICATORS - SIGNS / SYMPTOMS / LABS / RESULTS AND LOCATION IN MR RD assessment: - Nutrition Diagnosis Malnutrition Related to Advanced aging process vs Prior CVA as evidenced by mild temporalis muscle wasting, 13% weight loss x 4 months suggestive of moderate to severe malnutrition in the context of chronic illness (08/10) RISK FACTORS / RESULTS AND LOCATION IN MR Advanced age (75), correction pt requires assistance for most of his activities of daily living; Dx: Toxic metabolic encephalopathy ( Karina/ H&P) 08/09 TREATMENT / RESULTS AND LOCATION IN MR Dietary consult Recommend [employer] TIOlegario Moderate Malnutrition (in acute illness) Energy Intake: <75% of estimated energy requirement for > 7 days Weight Loss: 1-2%/1 week; 5%/ 1 month; 7.5%/3 months Other: mild body fat loss; mild muscle mass loss; mild fluid accumulation; Severe Malnutrition (in acute illness) Energy Intake: = 50% of estimated energy requirement for = 5 days Weight Loss: >2%/1 week; >5%/1 month; >7.5%/3 months Other: moderate body fat loss; moderate muscle mass loss; moderate- severe fluid accumulation; measurably reduced production dispatcher strength Moderate Malnutrition (in chronic illness) Energy Intake: <75% of estimated energy requirement for =1 month Weight Loss: 5%/1 month; 7.5%/3 months; 10%/6 months; 20%/1 year Other: mild body fat loss; mild muscle mass loss; mild fluid accumulation Severe Malnutrition (in chronic illness) Energy Intake: =75% of estimated energy requirement for =1 month Weight Loss: >5%/1 month; >7.5%/3 months; >10%/6 months; >20%/1 year Other: severe body fat loss; severe muscle mass loss; severe fluid accumulation; measurably reduced production dispatcher strength Thank you! CDS Signature: Aileen Roldan RN Phone #: [phone] Date:08/10/2020 This is a permanent part of the Medical Record [facility]
[2020-08-10 16:40] LABS: Anion Gap 16 mmol/L (10-20); BUN (Urea Nitrogen) 39 mg/dL (8.4-25.7); Calc. Creatinine Clearance 41 mL/min (70-130); Calcium 8.4 mg/dL (7.8-10.44); Carbon Dioxide 19 mmol/L (23-31); Estimated GFR-MDRD 45; Glucose 182 mg/dL (83-110); Potassium 4.7 mmol/L (3.5-5.1); Sodium 160 mmol/L (136-145)
[2020-08-10 17:01] LABS: Chloride 130 mmol/L (98-107)
[2020-08-10] MEDS: cefTRIAXone\\ROCEPHIN 1 GM in Sodium Chloride 0.9% 100 ML IVPB SCH (20:00)
--- NOTE | 2020-08-10 20:06 | PDOC.HOSPP ---
- Subjective Encounter Date: 08/10/20 Encounter Time: 14:00 non-verbal Subjective: Patient seen and examined for altered mentation/encephalopathy. Mentation slowly improving. No other overnight events. - Objective Vital Signs & Weight: Weight Admit Weight 99 lb 12.64 oz Weight 181 lb 12.8 oz I&O: 08/09/20 08/10/20 08/11/20 06:59 06:59 06:59 Intake Total 900 Balance 900 Result Diagrams: 08/10/20 06:07 08/10/20 16:13 Additional Labs: Accuchecks 08/10/20 08/10/20 17:51 13:41 POC Glucose 132 H 157 H Abnormal Lab Results - Last 48 hrs 08/09/20 12:07: Sodium 164 H*, Chloride 129 H*, BUN 34 H, Creatinine 1.55 H, Alkaline Phosphatase 112 H, Albumin/Globulin Ratio 1.1 L 08/09/20 12:07: WBC 13.5 H, Hgb 13.3 L, MCH 26.8 L, MCHC 29.1 L, Neutrophils % 77.0 H, Lymphocytes % 14.5 L, Neutrophils # 10.4 H, Monocytes # 0.8 H 08/09/20 12:07: Magnesium 2.9 H 08/09/20 12:07: Serum Osmolality 349 H* 08/09/20 17:56: Sodium 166 H*, Chloride 127 H*, BUN 35 H, Creatinine 1.53 H 08/09/20 17:56: Lactic Acid 2.5 H 08/10/20 06:07: Sodium 161 H*, Chloride 126 H*, BUN 37 H, Creatinine 1.63 H, Magnesium 2.7 H, Albumin 3.3 L, Albumin/Globulin Ratio 0.9 L 08/10/20 06:07: WBC 12.6 H, RBC 4.48 L, Hgb 12.2 L, Hct 40.6 L, MCHC 30.0 L, Neutrophils % 80.0 H, Lymphocytes % 11.8 L, Neutrophils # 10.1 H, Monocytes # 0.9 H 08/10/20 06:07: Serum Osmolality 349 H* 08/10/20 16:13: Sodium 160 H, Chloride 130 H*, Carbon Dioxide 19 L, BUN 39 H, Creatinine 1.80 H Microbiology - Entire Visit 10/13/20 12:30 Urine clean catch Urine Culture - Preliminary NO GROWTH AT 12 HOURS 08/09/20 12:30 Stool - Pending Stool Occult Blood (APRISH) - Final Radiology Reviewed by me: Yes (Chest x-raynegative for infiltrate) Hospitalist ROS - Review of Systems ROS unobtainable: due to mental status - Medication Medications: Active Medications Generic Name Dose Route Start Last Admin Trade Name Freq PRN Reason Stop Dose Admin Cyanocobalamin 1,000 mcg 08/10/20 09:00 08/10/20 10:43 Cyanocobalamin (Vitamin B-12) 1,000 Mcg Tab PO Not Given DAILY COOPER Famotidine 20 mg 08/09/20 21:00 08/09/20 20:21 Famotidine/Pf 20 Mg/2ml Vial SLOW IVP 20 mg 2100 COOPER Administration Folic Acid 1 mg 08/10/20 09:00 08/10/20 10:43 Folic Acid 1 Mg Tab PO Not Given DAILY COOPER Heparin Sodium (Porcine) 5,000 units 08/09/20 21:00 08/10/20 10:44 Heparin 5,000 Units/Ml Vial SC 5,000 units Q12HR COOPER Administration Ceftriaxone Sodium 1 gm/ 100 mls @ 200 mls/hr 08/09/20 20:00 08/09/20 20:21 Sodium Chloride IVPB 100 mls Q24HR COOPER Administration Dextrose/Water 1,000 mls @ 75 mls/hr 08/09/20 19:00 08/10/20 10:43 D5w IV 1,000 mls .[id number] COOPER Administration Insulin Human Regular 0 units 08/09/20 20:13 08/10/20 13:41 Insulin Regular 300 Units/3 Ml Vial SC 2 unit .MILD SLIDING SCALE PRN Administration Mild Correctional Scale - Exam General Appearance: ill appearing Neck: supple, no JVD Heart: RRR, no gallops, no rubs, normal peripheral pulses Respiratory: no rales, no ronchi, normal chest expansion, no tachypnea Gastrointestinal: soft, non-distended, no guarding, no rigidity Extremities: no cyanosis, no clubbing Neurological - other findings: Neuro/psych exam limited due to current mentation Musculoskeletal: generalized weakness Hosp A/P - Plan DVT proph w/SCDs A 75-year-old male with hemorrhagic CVA, currently halfway resident, presenting with altered mentation. He has severe hypernatremia with elevated osmolality of 349. His sodium was 166 on admission. 1. Toxic metabolic encephalopathy, multifactorial. 2. Severe hyperosmolar hypernatremia. 3. Dehydration. 4. Acute kidney injury on chronic kidney disease, stage 2. 5. Recent urinary tract infection, completed antibiotics. 6. Swallow dysfunction. 7. History of hemorrhagic CVA. 8. Hypertension. 9. Hyperlipidemia. 10. Diabetes mellitus, type 2. 11. History of complete heart block, status post pacemaker. 12. Paroxysmal atrial fibrillation. 13. Chronic anemia. 14. Physical deconditioning. 15. Moderate protein calorie malnutrition PLAN: Sodium gradually improving. Serum osmolality today was 349. Will continue D5 water at 75 mL an hour. Patient is unsafe for any kind of consistency for now due to altered mentation. Will continue physical therapy/Occupational The rapy/speech therapy evaluation. Continue heparin for DVT prophylaxis. Continue empiric ceftriaxone pending cultures. Monitor BMP twice daily. Continue other medications as above. Will restart home medications once verified.
[2020-08-10] MEDS: Famotidine/PF 20 mg/2ml Vial SLOW IVP SCH (21:00)
[2020-08-11 05:01] LABS: #Basophils 0.1 thou/uL (0.0-0.2); #Eosinphils 0.3 thou/uL (0.0-0.7); #Lymphocytes 1.5 thou/uL (1.20-3.40); #Monocytes 0.7 thou/uL (0.11-0.59); #Neutrophils 7.4 thou/uL (1.40-6.50); %Basophils 0.6 % (0.0-1.0); %Eosinophils 3.2 % (0.0-10.0); %Lymphocytes 15.4 % (21.0-51.0); %Monocytes 6.9 % (0.0-10.0); Mean Corpuscular HGB CONC 31.2 g/dL (32.0-36.0); Mean Corpuscular Hemoglobin 27.5 pg (27.0-31.0); Mean Corpuscular Volume 88.1 fL (78.0-98.0); Mean Platelet Volume 9.6 fL (7.4-10.4); Platelet Count 234 thou/uL (130-400); RBC Distribution Width 14.4 % (11.5-14.5); Red Blood Cell (RBC) Count 4.36 mill/uL (4.70-6.10)
[2020-08-11 05:10] LABS: INR-International Normal Ratio 1.3; PTT 30.4 sec (22.9-36.1); Prothrombin Time 16.6 sec (12.0-14.7)
[2020-08-11 05:17] LABS: Lactic Acid 1.2 mmol/L (0.5-2.2)
[2020-08-11 05:22] LABS: Anion Gap 14 mmol/L (10-20); BUN (Urea Nitrogen) 43 mg/dL (8.4-25.7); Calc. Creatinine Clearance 43 mL/min (70-130); Calcium 8.3 mg/dL (7.8-10.44); Carbon Dioxide 22 mmol/L (23-31); Estimated GFR-MDRD 47; Glucose 164 mg/dL (83-110); Magnesium 2.8 mg/dL (1.6-2.6); Phosphorus 3.2 mg/dL (2.3-4.7); Potassium 3.4 mmol/L (3.5-5.1); Sodium 160 mmol/L (136-145)
[2020-08-11 05:30] LABS: Chloride 127 mmol/L (98-107)
[2020-08-11] MEDS ORDERED: Dextrose 5% in Water 1,000 ML IV SCH (07:23)
[2020-08-11] MEDS: Cyanocobalamin (Vitamin B-12) 1,000 MCG TAB PO SCH (08:28)
[2020-08-11] MEDS: Folic Acid 1 MG TAB PO SCH (08:29)
[2020-08-11] MEDS: Heparin 5,000 UNITS/ML VIAL SC SCH ×2 (10:43→20:29)
[2020-08-11 12:49] LABS: SARS-CoV-2 MS2 Positive; SARS-CoV-2 N Gene Negative; SARS-CoV-2 S Gene Negative; SARS-CoV-2 by NAA Not Detected (NotDetected); SARS-CoV-2 orf1ab Negative
[2020-08-11] MEDS ORDERED: Dextrose 5% in Water 250 ML IV SCH (13:00)
[2020-08-11] MEDS: carBAMazepine 200 MG TAB PO SCH ×2 (14:54→21:43)
--- NOTE | 2020-08-11 15:44 | SPC ---
Left upper extremity PICC sonographic guided HISTORY: Need for IV access. FINDINGS: After obtaining informed consent, left upper extremity was prepped and draped in usual ster ile fashion. Sterile technique, buffered local anesthesia, sonographic guidance, and a 22-gauge needle were used t o carefully access the left brachial vein. The left arm was used due to contracture of the right arm. Some difficulty was encountered passing the 0.018 guidewire passed the subclavian vein entry point of the cardiac pacer. Standard technique was used to place the tip of a 5 Chinese single lumen PICC so that its tip lies at the level of the superior vena cava. Catheter was flushed and secured externally. Patient tolerated the procedure well and was returned in unchanged condition. IMPRESSION : Left upper extremity PICC is ready for use.
[2020-08-11] MEDS: Dextrose 5% in Water 1,000 ML IV SCH (16:01)
[2020-08-11] MEDS: Artificial Tear Sol 15 ML BOT EA EYE SCH ×2 (17:13→20:33)
--- NOTE | 2020-08-11 17:57 | PDOC.HOSPP ---
- Subjective Encounter Date: 08/11/20 Encounter Time: 12:00 non-verbal Subjective: Patient seen and examined for encephalopathy due to severe dehydration. Remains confused. Does not have IV access at this time. Several attempts were made last night. - Objective Vital Signs & Weight: Vital Signs (12 hours) Temp Pulse Resp BP BP Pulse Ox 08/11/20 16:00 97.4 F L 82 14 125/60 98 08/11/20 11:40 97.6 F 92 14 120/55 L 97 08/11/20 08:00 99 08/11/20 07:49 98.2 F 99 13 123/66 99 Weight Admit Weight 99 lb 12.64 oz Weight 181 lb 12.8 oz I&O: 08/10/20 08/11/20 08/12/20 06:59 06:59 06:59 Intake Total 900 Balance 900 Result Diagrams: 08/11/20 04:47 08/11/20 04:47 Additional Labs: Accuchecks 08/11/20 08/10/20 11:44 17:51 POC Glucose 133 H 132 H Abnormal Lab Results - Last 48 hrs 08/09/20 17:56: Sodium 166 H*, Chloride 127 H*, BUN 35 H, Creatinine 1.53 H 08/09/20 17:56: Lactic Acid 2.5 H 08/10/20 06:07: Sodium 161 H*, Chloride 126 H*, BUN 37 H, Creatinine 1.63 H, Magnesium 2.7 H, Albumin 3.3 L, Albumin/Globulin Ratio 0.9 L 08/10/20 06:07: WBC 12.6 H, RBC 4.48 L, Hgb 12.2 L, Hct 40.6 L, MCHC 30.0 L, Neutrophils % 80.0 H, Lymphocytes % 11.8 L, Neutrophils # 10.1 H, Monocytes # 0.9 H 08/10/20 06:07: Serum Osmolality 349 H* 08/10/20 16:13: Sodium 160 H, Chloride 130 H*, Carbon Dioxide 19 L, BUN 39 H, Creatinine 1.80 H 08/11/20 04:47: Sodium 160 H, Potassium 3.4 L, Chloride 127 H*, Carbon Dioxide 22 L, BUN 43 H, Creatinine 1.73 H, Magnesium 2.8 H 08/11/20 04:47: Serum Osmolality 343 H* 08/11/20 04:47: RBC 4.36 L, Hgb 12.0 L, Hct 38.4 L, MCHC 31.2 L, Lymphocytes % 15.4 L, Neutrophils # 7.4 H, Monocytes # 0.7 H 08/11/20 04:47: PT 16.6 H Microbiology - Entire Visit 08/09/20 12:30 Urine clean catch Urine Culture - Final NO GROWTH AT 36 HOURS 08/09/20 12:30 Stool - Pending Stool Occult Blood (PARISH) - Final Hospitalist ROS - Review of Systems ROS unobtainable: due to mental status - Medication Medications: Active Medications Generic Name Dose Route Start Last Admin Trade Name Freq PRN Reason Stop Dose Admin Artificial Tears 2 drop 08/11/20 14:00 08/11/20 17:13 Artificial Tear Zoe 15 Ml Bot EA EYE Not Given Q8HR COOPER Carbamazepine 200 mg 08/11/20 15:00 08/11/20 14:54 Carbamazepine 200 Mg Tab PO Not Given TID COOPER Cyanocobalamin 1,000 mcg 08/10/20 09:00 08/11/20 08:28 Cyanocobalamin (Vitamin B-12) 1,000 Mcg Tab PO Not Given DAILY COOPER Famotidine 20 mg 08/09/20 21:00 08/10/20 21:00 Famotidine/Pf 20 Mg/2ml Vial SLOW IVP Not Given 2100 [facility] Folic Acid 1 mg 08/10/20 09:00 08/11/20 08:29 Folic Acid 1 Mg Tab PO Not Given DAILY [facility] Heparin Sodium (Porcine) 5,000 units 08/09/20 21:00 08/11/20 10:43 Heparin 5,000 Units/Ml Vial SC Not Given Q12HR COOPER Ceftriaxone Sodium 1 gm/ 100 mls @ 200 mls/hr 08/09/20 20:00 08/10/20 20:00 Sodium Chloride IVPB Not Given Q24HR [facility] Dextrose/Water 1,000 mls @ 75 mls/hr 08/11/20 10:15 08/11/20 16:01 D5w IV 1,000 mls .[id number] COOPER Administration Insulin Human Regular 0 units 08/09/20 20:13 08/10/20 13:41 Insulin Regular 300 Units/3 Ml Vial SC 2 unit .MILD SLIDING SCALE PRN Administration Mild Correctional Scale - Exam General Appearance: ill appearing Heart: RRR, no gallops, no rubs, normal peripheral pulses Respiratory: no wheezes, no rales, no ronchi Gastrointestinal: soft, non-distended, normal bowel sounds, no guarding, no rigidity Extremities: no cyanosis, no clubbing Psychiatric: not oriented Hosp A/P - Plan DVT proph w/heparin, DVT proph w/SCDs A 75-year-old male with hemorrhagic CVA, currently half-way resident, presenting with altered mentation. He has severe hypernatremia with elevated osmolality of 349. His sodium was 166 on admission. 1. Toxic metabolic encephalopathy, multifactorial. 2. Severe hyperosmolar hypernatremia. 3. Dehydration. 4. Acute kidney injury on chronic kidney disease, stage 2. 5. Recent urinary tract infection, completed antibiotics. 6. Swallow dysfunction. 7. History of hemorrhagic CVA. 8. Hypertension. 9. Hyperlipidemia. 10. Diabetes mellitus, type 2. 11. History of complete heart block, status post pacemaker. 12. Paroxysmal atrial fibrillation. 13. Chronic anemia. 14. Physical deconditioning. 15. Moderate protein calorie malnutrition. 16. Glaucoma. PLAN: 08/11 Patient has no IV access at this time after several attempts. Patient also has a dialysis access in the right upper extremity. A PICC line will be placed. Patient has a long history of swallow dysfunction currently on modified diet. Will probably benefit from PEG tube placement to prevent episodes of dehydration. Case discussed with the son who agrees with the above plan of care. Gastroenterology consultation for evaluation for PEG tube. Continue IV fluid with dextrose once PICC line obtained. Continue aspirin. Continue other medications as above. Restart eyedrops. A.m. labs 08/10 Sodium gradually improving. Serum osmolality today was 349. Will continue D5 water at 75 mL an hour. Patient is unsafe for any kind of consistency for now due to altered mentation. Will continue physical therapy/Occupational Therapy/speech therapy evaluation. Continue heparin for DVT prophylaxis. Continue empiric ceftriaxone pending cultures. Monitor BMP twice daily. Continue other medications as above. Will restart home medications once verified.
[2020-08-11] MEDS: cefTRIAXone\\ROCEPHIN 1 GM in Sodium Chloride 0.9% 100 ML IVPB SCH (20:29)
[2020-08-11] MEDS: Famotidine/PF 20 mg/2ml Vial SLOW IVP SCH (20:29)
[2020-08-11] MEDS ORDERED: Non-Formulary Item 1 EACH (Travoprost [Travatan Z] 2.5 ML Bot) L EYE SCH (21:00)
[2020-08-11] MEDS: Latanoprost 0.005% Ophth Soln 2.5 ml Bottle L EYE SCH (21:41)
[2020-08-11] MEDS: DorzolamidE/Timolol 2%/0.5% Ophth Soln 10 ml Bottle EA EYE SCH (21:41)
[2020-08-12] MEDS: Dextrose 5% in Water 1,000 ML IV SCH ×2 (05:24→14:10)
[2020-08-12] MEDS: Artificial Tear Sol 15 ML BOT EA EYE SCH ×3 (05:25→22:00)
[2020-08-12 05:42] LABS: #Basophils 0.1 thou/uL (0.0-0.2); #Eosinphils 0.3 thou/uL (0.0-0.7); #Lymphocytes 1.4 thou/uL (1.20-3.40); #Monocytes 0.6 thou/uL (0.11-0.59); #Neutrophils 5.6 thou/uL (1.40-6.50); %Basophils 0.6 % (0.0-1.0); %Monocytes 7.7 % (0.0-10.0); %Neutrophils 69.6 % (42.0-75.0); Hemoglobin 11.2 g/dL (14.0-18.0); Mean Corpuscular HGB CONC 30.4 g/dL (32.0-36.0); Mean Corpuscular Hemoglobin 26.8 pg (27.0-31.0); Mean Corpuscular Volume 88.1 fL (78.0-98.0); Mean Platelet Volume 9.3 fL (7.4-10.4); Platelet Count 202 thou/uL (130-400); RBC Distribution Width 13.9 % (11.5-14.5); Red Blood Cell (RBC) Count 4.17 mill/uL (4.70-6.10)
[2020-08-12 06:10] LABS: Anion Gap 14 mmol/L (10-20); BUN (Urea Nitrogen) 33 mg/dL (8.4-25.7); Calc. Creatinine Clearance 55 mL/min (70-130); Calcium 8.1 mg/dL (7.8-10.44); Carbon Dioxide 21 mmol/L (23-31); Chloride 123 mmol/L (98-107); Estimated GFR-MDRD 62; Glucose 171 mg/dL (83-110); Potassium 3.3 mmol/L (3.5-5.1); Sodium 155 mmol/L (136-145)
[2020-08-12] MEDS: Aspirin 81 mg Enteric Coated Tablet PO SCH (08:53)
[2020-08-12] MEDS: Folic Acid 1 MG TAB PO SCH (08:53)
[2020-08-12] MEDS: carBAMazepine 200 MG TAB PO SCH ×3 (08:53→20:52)
[2020-08-12] MEDS: Cyanocobalamin (Vitamin B-12) 1,000 MCG TAB PO SCH (08:53)
[2020-08-12] MEDS: Aspirin 300 MG Suppository PR SCH (08:53)
[2020-08-12] MEDS: DorzolamidE/Timolol 2%/0.5% Ophth Soln 10 ml Bottle EA EYE SCH ×2 (08:54→19:45)
[2020-08-12] MEDS: Heparin 5,000 UNITS/ML VIAL SC SCH ×2 (08:55→19:44)
--- NOTE | 2020-08-12 14:51 | PRG ---
DATE OF SERVICE: 08/12/2020 SUBJECTIVE: Mr. Bucio is a little more awake today. He can say okay. He can say hello. Medications unchanged. OBJECTIVE: VITAL SIGNS: Temperature is 98, pulse 60, blood pressure is 102/60. ABDOMEN: Soft, nontender. There is no rebound. There is no guarding. LABORATORY DATA: Today, white count is 8, hemoglobin is 11.2, and platelet count is 202. Sodium 155, potassium 3.3, BUN and creatinine are 33 and 1.35. ASSESSMENT: 1. Hypernatremia, improving with hydration. 2. Mental status seems to be improving as well. Still unclear if his deterioration in mental status is secondary to hypernatremia or possibly had a new stroke. 3. Oropharyngeal dysphagia. It is really difficult to assess where he is in light of the fact that his mental status seems to improve every day with correction of his hypernatremia. As per the son's report and nursing report, he was taking a pureed diet and liquids well. [facility]. It does not seem that he has had any recurrent admissions for aspiration pneumonia or dehydration and his son states that he has not been in any of the facilities either for this. RECOMMENDATIONS: Continue to correct hypernatremia. We will see where his mental status is in a day or two and how he performs on swallowing evaluations. Dr. Edwards is on-call this weekend. We will continue to follow along. Job ID: [id number]
--- NOTE | 2020-08-12 15:18 | RAD ---
XR Ba Swallow W/Speech Therap History: Dysphagia following other cerebral infarction, I 69.391 Feeding difficulties R 63.3 Dysphagia, oropharyngeal phase R 13.12 Comparison: None. Findings: Multiple consistencies contrast material was given to the patient via the speech pathologis t. Penetration and aspiration with multiple contrast consistencies. Please see their report for details of the exam. Impression: Fluoroscopy for the speech pathologist. Total fluoroscopy time: 2.6 minutes
[2020-08-12 16:39] LABS: Anion Gap 9 mmol/L (10-20); BUN (Urea Nitrogen) 29 mg/dL (8.4-25.7); Calc. Creatinine Clearance 57 mL/min (70-130); Carbon Dioxide 25 mmol/L (23-31); Chloride 121 mmol/L (98-107); Estimated GFR-MDRD 65; Glucose 178 mg/dL (83-110); Potassium 3.2 mmol/L (3.5-5.1); Sodium 152 mmol/L (136-145)
--- NOTE | 2020-08-12 18:48 | CON ---
DATE OF CONSULTATION: 08/11/2020 REASON FOR CONSULTATION: Request for possible PEG tube placement. HISTORY OF PRESENT ILLNESS: Comes from reviewing the chart and talking to the patient's son and the referring physician as well as the patient's nurse as the patient can give no history secondary to obtunded mental status. Mr. Bucio is a 75-year-old gentleman who was admitted to the hospital on 04/09 secondary to altered mental status. He had been found to be altered at his snf and sent down. He had last admission at this hospital back in March. He has had a previous history of stroke. He has atrial fibrillation, not on coagulation; diabetes; hypertension; prior history of seizure and hemorrhage after stroke several years ago. When he got in here, his sodium was over 160. Apparently, the snf reported on admission that was his baseline and that they thought maybe he is having seizures, so EMS was called. There was a question of episode of ventricular tachycardia on transfer to the hospital as well. It turned out that was just his normal pacemaker. In talking with the patient's son, although he states he has not been able to get to the snf and see him with COVID restrictions lately, the patient usually eats a very pureed diet and communicates yes/no answers. Apparently, this is what the hospitalist got from the snf as well. Here today, the patient is basically obtunded with his mouth open and cannot communicate with me. Evaluation here has been notable that his CAT scan showed multiple prior strokes with encephalomalacia involving the left temporal and parietal lobes, large left ventricle, and hypodensity in the parietal and frontal lobes. It is unclear if he had a subacute stroke. In any event, there were issues with IV access. This was not until the day of consultation as the patient was able to get a PICC line for IV fluids. PAST MEDICAL HISTORY: Hyperlipidemia, hypertension, prior stroke, TIAs, hemorrhagic conversion stroke, diabetes, atrial fibrillation, reflux. PAST SURGICAL HISTORY: Includes left frontoparietal temporal craniotomy for subdural hematoma; tracheostomy and PEG tube placement in the past, which were reversed; hemodialysis in the past. SOCIAL HISTORY: The patient is not able to add this, but records indicate negative for alcohol, drugs, or tobacco. Code status is full code. MEDICATIONS: Here, 1. Tylenol. 2. Ecotrin. 3. Tegretol. 4. Rocephin. 5. B12. 6. . 7. Pepcid. 8. Glucagon. 9. Heparin. 10. Insulin. 11. Loperamide. 12. Zofran. Home medicines, 1. Apresoline. 2. Tegretol. 3. Travatan. 4. Bactrim. 5. Sennoside. 6. Crestor. 7. Polyethylene glycol. 8. Multivitamin. 9. Magnesium. 10. Insulin. 11. . 12. Iron. PHYSICAL EXAMINATION: VITAL SIGNS: Temperature is 98, pulse 97, T-max on the was 99, blood pressure 125/60. GENERAL: He is nonresponsive. He does not respond to painful stimuli. LUNGS: Clear. HEART: Regular rate and rhythm without clicks or murmurs. ABDOMEN: Soft and nontender. There is no rebound. There is no guarding. EXTREMITIES: No clubbing, cyanosis, or edema. NEUROLOGIC: He is well nourished and well developed with no evidence of cachexia. LABORATORY DATA: White count is 8, hemoglobin is 11, and platelet count is 202. Labs on admission; sodium is 164, 166 on the 13th, on 08/10 of 160; chloride 130; bicarb 19; BUN and creatinine 39 and 1.8. Magnesium is 2.7. AST and ALT are 16 and 15, alkaline phosphatase 101. Albumin 3.3, protein is 6.8. TSH in March was 2. Urinalysis on admission, positive nitrites. Toxicology not done. ASSESSMENT AND RECOMMENDATIONS: The patient is obtunded. He just got IV fluids started for severe hypernatremia. A PEG tube may not be unreasonable, but I think his hypernatremia needs to be treated first. He does not assume to be cachectic. There is history that he was swallowing and eating well at the snf and his nutritional status would seem to indicate this is true. He has had prior strokes and some issues with oropharyngeal dysphagia, but again it seems like what is going on with the hypernatremia is acute and may not be just because of poor p.o. intake as he has not had chronic problems with admissions for dehydration and has not been in this facility in several months. In any event, his sodium is going to need to be corrected before he goes to anesthesia and start work on doing that and we will see what his mental status does. If he improves, we may be able to avoid replacing a percutaneous endoscopic gastrostomy as his son indicates in my conversation today that he is very likely to pull it out as that is what he did before when he had percutaneous endoscopic gastrostomy tubes. Job ID: [id number]
[2020-08-12] MEDS: Potassium Chloride 40 MEQ in Dextrose 5% in Water 1,000 ML IV SCH (19:44)
[2020-08-12] MEDS: Latanoprost 0.005% Ophth Soln 2.5 ml Bottle L EYE SCH (19:45)
[2020-08-12] MEDS: Famotidine/PF 20 mg/2ml Vial SLOW IVP SCH (19:45)
[2020-08-12] MEDS: cefTRIAXone\\ROCEPHIN 1 GM in Sodium Chloride 0.9% 100 ML IVPB SCH (19:56)
--- NOTE | 2020-08-12 20:28 | PDOC.HOSPP ---
- Subjective Encounter Date: 08/12/20 Encounter Time: 09:30 Subjective: Patient seen and examined for altered mentation. Mentation improving. Appears comfortable. No other overnight issues. Patient underwent modified barium swallow earlier today that was consistent with aspiration. - Objective Vital Signs & Weight: Vital Signs (12 hours) Temp Pulse Resp BP Pulse Ox 08/12/20 19:56 98.0 F 71 16 135/59 L 100 Weight Admit Weight 99 lb 12.64 oz Weight 181 lb 12.8 oz I&O: 08/11/20 08/12/20 08/13/20 06:59 06:59 06:59 Intake Total 900 1125 0 Balance 900 1125 0 Result Diagrams: 08/13/20 06:20 08/13/20 06:20 Additional Labs: Accuchecks 08/12/20 08/12/20 08/12/20 20:03 15:54 11:46 POC Glucose 121 H 168 H 177 H 08/12/20 08/11/20 08/11/20 05:39 20:40 16:07 POC Glucose 159 H 198 H 306 H 08/11/20 05:35 POC Glucose 157 H Hospitalist ROS - Review of Systems ROS unobtainable: due to mental status - Medication Medications: Active Medications Generic Name Dose Route Start Last Admin Trade Name Freq PRN Reason Stop Dose Admin Artificial Tears 2 drop 08/11/20 14:00 08/12/20 16:24 Artificial Tear Zoe 15 Ml Bot EA EYE 2 drop Q8HR COOPER Administration Aspirin 81 mg 08/12/20 09:00 08/12/20 08:53 Aspirin 81 Mg Enteric Coated Tablet PO Not Given DAILY COOPER Aspirin 300 mg 08/12/20 09:00 08/12/20 08:53 Aspirin 300 Mg Suppository [place] 300 mg DAILY COOPER Administration Carbamazepine 200 mg 08/11/20 15:00 08/12/20 16:25 Carbamazepine 200 Mg Tab PO Not Given TID COOPER Cyanocobalamin 1,000 mcg 08/10/20 09:00 08/12/20 08:53 Cyanocobalamin (Vitamin B-12) 1,000 Mcg Tab PO Not Given DAILY COOPER Dorzolamide/Timolol 0 drop 08/11/20 21:00 08/12/20 19:45 Dorzolamide/Timolol 2%/0.5% Ophth Soln 10 Ml Bottle EA EYE 1 drop Q12HR COOPER Administration Famotidine 20 mg 08/09/20 21:00 08/12/20 19:45 Famotidine/Pf 20 Mg/2ml Vial SLOW IVP 20 mg 2100 COOPER Administration Folic Acid 1 mg 08/10/20 09:00 08/12/20 08:53 Folic Acid 1 Mg Tab PO Not Given DAILY COOPER Heparin Sodium (Porcine) 5,000 units 08/09/20 21:00 08/12/20 19:44 Heparin 5,000 Units/Ml Vial SC 5,000 units Q12HR COOPER Administration Ceftriaxone Sodium 1 gm/ 100 mls @ 200 mls/hr 08/09/20 20:00 08/12/20 19:56 Sodium Chloride IVPB 100 mls Q24HR COOPER Administration Potassium Chloride 40 meq/ 1,020 mls @ 75 mls/hr 08/12/20 18:30 08/12/20 19:44 Dextrose/Water IV 1,020 mls .[id number] COOPER Administration Insulin Human Regular 0 units 08/09/20 20:13 08/10/20 13:41 Insulin Regular 300 Units/3 Ml Vial SC 2 unit .MILD SLIDING SCALE PRN Administration Mild Correctional Scale Latanoprost 2 drop 08/11/20 21:00 08/12/20 19:45 Latanoprost 0.005% Ophth Soln 2.5 Ml Bottle L EYE 2 drop HS COOPER Administration Sodium Chloride 10 ml 08/11/20 21:00 08/12/20 19:57 Flush - Normal Saline 10 Ml Syringe IVF 10 ml Q12HR COOPER Administration - Exam General Appearance: ill appearing Neck: supple, no JVD Heart: RRR, no gallops Respiratory: rhonchi Gastrointestinal: soft, no guarding, no rigidity Extremities: no cyanosis Neurological: no new deficit Hosp A/P - Plan DVT proph w/SCDs A 75-year-old male with hemorrhagic CVA, currently snf resident, presenting with altered mentation. He has severe hypernatremia with elevated osmolality of 349. His sodium was 166 on admission. 1. Toxic metabolic encephalopathy, multifactorial. 2. Severe hyperosmolar hypernatremia. 3. Dehydration. 4. Acute kidney injury on chronic kidney disease, stage 2. 5. Recent urinary tract infection, completed antibiotics. 6. Swallow dysfunction. 7. History of hemorrhagic CVA. 8. Hypertension. 9. Hyperlipidemia. 10. Diabetes mellitus, type 2. 11. History of complete heart block, status post pacemaker. 12. Paroxysmal atrial fibrillation. 13. Chronic anemia. 14. Physical deconditioning. 15. Moderate protein calorie malnutrition. 16. Glaucoma. 17. Hypokalemia PLAN: 08/12 Modified barium swallow was consistent with swallow dysfunction. Will continue IV fluids with dextrose. Replace potassium. Repeat chest x-ray in a.m. to rule out aspiration pneumonia. WBC count improving. Will continue ceftriaxone. Recheck labs on a daily basis. Check basic metabolic profile twice a day. GI input appreciated. 08/11 Patient has no IV access at this time after several attempts. Patient also has a dialysis access in the right upper extremity. A PICC line will be placed. Patient has a long history of swallow dysfunction currently on modified diet. Will probably benefit from PEG tube placement to prevent episodes of dehydration. Case discussed with the son who agrees with the above plan of care. Gastroenterology consultation for evaluation for PEG tube. Continue IV fluid with dextrose once PICC line obtained. Continue aspirin. Continue other medications as above. Restart eyedrops. A.m. labs 08/10 Sodium gradually improving. Serum osmolality today was 349. Will continue D5 water at 75 mL an hour. Patient is unsafe for any kind of consistency for now due to altered mentation. Will continue physical therapy/Occupational Therapy/speech therapy evaluation. Continue heparin for DVT prophylaxis. Continue empiric ceftriaxone pending cultures. Monitor BMP twice daily. Continue other medications as above. Will restart home medications once verified.
[2020-08-13] MEDS: Artificial Tear Sol 15 ML BOT EA EYE SCH ×3 (05:47→23:26)
[2020-08-13 06:31] LABS: #Eosinphils 0.3 thou/uL (0.0-0.7); #Lymphocytes 1.1 thou/uL (1.20-3.40); #Monocytes 0.6 thou/uL (0.11-0.59); #Neutrophils 5.2 thou/uL (1.40-6.50); %Basophils 0.2 % (0.0-1.0); %Eosinophils 4.8 % (0.0-10.0); %Lymphocytes 15.5 % (21.0-51.0); %Monocytes 7.8 % (0.0-10.0); %Neutrophils 71.6 % (42.0-75.0); Hemoglobin 10.3 g/dL (14.0-18.0); Mean Corpuscular HGB CONC 31.5 g/dL (32.0-36.0); Mean Corpuscular Hemoglobin 27.7 pg (27.0-31.0); Mean Corpuscular Volume 87.8 fL (78.0-98.0); Mean Platelet Volume 8.7 fL (7.4-10.4); Platelet Count 186 thou/uL (130-400); RBC Distribution Width 13.7 % (11.5-14.5); Red Blood Cell (RBC) Count 3.71 mill/uL (4.70-6.10); White Blood Cell (WBC) Count 7.2 thou/uL (4.8-10.8)
[2020-08-13 06:49] LABS: Anion Gap 9 mmol/L (10-20); BUN (Urea Nitrogen) 22 mg/dL (8.4-25.7); Calc. Creatinine Clearance 68 mL/min (70-130); Calcium 7.8 mg/dL (7.8-10.44); Carbon Dioxide 25 mmol/L (23-31); Chloride 121 mmol/L (98-107); Estimated GFR-MDRD 80; Glucose 173 mg/dL (83-110); Potassium 3.2 mmol/L (3.5-5.1); Sodium 152 mmol/L (136-145)
[2020-08-13] MEDS ORDERED: Potassium Phosphate 15 MMOL in Sodium Chloride 0.9% 250 ML 250 ML IVPB SCH (08:00)
--- NOTE | 2020-08-13 09:07 | RAD ---
PORTABLE CHEST: HISTORY: Question aspiration pneumonia. COMPARISON: 08/09/2020. FINDINGS: The lungs appear clear. No evidence of acute infiltrate or significant interval change from the prio r exam. Pacemaker leads are unchanged. Vascular markings normal. IMPRESSION: No acute process identified. POS: AGW
[2020-08-13] MEDS: Aspirin 300 MG Suppository PR SCH (10:03)
[2020-08-13] MEDS: Potassium Chloride 40 MEQ in Dextrose 5% in Water 1,000 ML IV SCH ×2 (10:08→23:58)
[2020-08-13] MEDS: DorzolamidE/Timolol 2%/0.5% Ophth Soln 10 ml Bottle EA EYE SCH ×2 (10:10→20:01)
[2020-08-13] MEDS: Cyanocobalamin (Vitamin B-12) 1,000 MCG TAB PO SCH (10:10)
[2020-08-13] MEDS: Aspirin 81 mg Enteric Coated Tablet PO SCH (10:10)
[2020-08-13] MEDS: carBAMazepine 200 MG TAB PO SCH ×3 (10:10→20:03)
[2020-08-13] MEDS: Heparin 5,000 UNITS/ML VIAL SC SCH ×2 (10:12→20:03)
[2020-08-13] MEDS: Folic Acid 1 MG TAB PO SCH (10:12)
[2020-08-13 17:50] LABS: Anion Gap 13 mmol/L (10-20); BUN (Urea Nitrogen) 18 mg/dL (8.4-25.7); Calc. Creatinine Clearance 70 mL/min (70-130); Calcium 7.9 mg/dL (7.8-10.44); Carbon Dioxide 21 mmol/L (23-31); Chloride 121 mmol/L (98-107); Estimated GFR-MDRD 83; Glucose 163 mg/dL (83-110); Potassium 3.9 mmol/L (3.5-5.1); Sodium 151 mmol/L (136-145)
[2020-08-13] MEDS: Latanoprost 0.005% Ophth Soln 2.5 ml Bottle L EYE SCH (20:01)
[2020-08-13] MEDS: Famotidine/PF 20 mg/2ml Vial SLOW IVP SCH (20:02)
--- NOTE | 2020-08-13 21:37 | PDOC.HOSPP ---
- Subjective Encounter Date: 08/13/20 Encounter Time: 10:00 Subjective: Patient seen and examined for encephalopathy due to severe dehydration/hypernatremia. No significant change in mentation since yesterday. No seizures or other overnight events. - Objective Vital Signs & Weight: Vital Signs (12 hours) Temp Pulse Resp BP BP Pulse Ox 08/13/20 20:00 99.0 F 62 20 114/57 L 100 08/13/20 16:00 97.9 F 60 20 105/55 L 100 08/13/20 12:00 98.0 F 60 20 116/57 L 100 Weight Admit Weight 99 lb 12.64 oz Weight 181 lb 12.8 oz I&O: 08/12/20 08/13/20 08/14/20 06:59 06:59 06:59 Intake Total 1125 0 1150 Balance 1125 0 1150 Result Diagrams: 08/13/20 06:20 08/13/20 16:48 Additional Labs: Accuchecks 08/13/20 08/13/20 08/13/20 20:16 16:06 12:13 POC Glucose 141 H 142 H 148 H 08/13/20 04:37 POC Glucose 144 H Radiology Reviewed by me: Yes (Chest x-ray negative) Hospitalist ROS - Review of Systems ROS unobtainable: due to mental status - Medication Medications: Active Medications Generic Name Dose Route Start Last Admin Trade Name Freq PRN Reason Stop Dose Admin Artificial Tears 2 drop 08/11/20 14:00 08/13/20 14:52 Artificial Tear Zoe 15 Ml Bot EA EYE 2 drop Q8HR COOPER Administration Aspirin 81 mg 08/12/20 09:00 08/13/20 10:10 Aspirin 81 Mg Enteric Coated Tablet PO Not Given DAILY COOPER Aspirin 300 mg 08/12/20 09:00 08/13/20 10:03 Aspirin 300 Mg Suppository [place] 300 mg DAILY COOPER Administration Carbamazepine 200 mg 08/11/20 15:00 08/13/20 20:03 Carbamazepine 200 Mg Tab PO Not Given TID COOPER Cyanocobalamin 1,000 mcg 08/10/20 09:00 08/13/20 10:10 Cyanocobalamin (Vitamin B-12) 1,000 Mcg Tab PO Not Given DAILY COOPER Dorzolamide/Timolol 0 drop 08/11/20 21:00 08/13/20 20:01 Dorzolamide/Timolol 2%/0.5% Ophth Soln 10 Ml Bottle EA EYE 1 drop Q12HR COOPER Administration Famotidine 20 mg 08/09/20 21:00 08/13/20 20:02 Famotidine/Pf 20 Mg/2ml Vial SLOW IVP 20 mg 2100 COOPER Administration Folic Acid 1 mg 08/10/20 09:00 08/13/20 10:12 Folic Acid 1 Mg Tab PO Not Given DAILY COOPER Heparin Sodium (Porcine) 5,000 units 08/09/20 21:00 08/13/20 20:03 Heparin 5,000 Units/Ml Vial SC 5,000 units Q12HR COOPER Administration Potassium Chloride 40 meq/ 1,020 mls @ 75 mls/hr 08/12/20 18:30 08/13/20 10:08 Dextrose/Water IV 1,020 mls .[id number] COOPER Administration Insulin Human Regular 0 units 08/09/20 20:13 08/10/20 13:41 Insulin Regular 300 Units/3 Ml Vial SC 2 unit .MILD SLIDING SCALE PRN Administration Mild Correctional Scale Latanoprost 2 drop 08/11/20 21:00 08/13/20 20:01 Latanoprost 0.005% Ophth Soln 2.5 Ml Bottle L EYE 2 drop HS COOPER Administration Sodium Chloride 10 ml 08/11/20 21:00 08/13/20 20:02 Flush - Normal Saline 10 Ml Syringe IVF Not Given Q12HR COOPER - Exam General Appearance: ill appearing Neck: supple, no JVD Heart: RRR, no gallops Respiratory: no wheezes, no ronchi Gastrointestinal: soft, non-distended, no guarding, no rigidity Extremities: no cyanosis Hosp A/P - Plan A 75-year-old male with hemorrhagic CVA, currently [facility] resident, presenting with altered mentation. He has severe hypernatremia with elevated osmolality of 349. His sodium was 166 on admission. 1. Toxic metabolic encephalopathy, multifactorial. 2. Severe hyperosmolar hypernatremia. 3. Dehydration. 4. Acute kidney injury on chronic kidney disease, stage 2. 5. Recent urinary tract infection, completed antibiotics. 6. Swallow dysfunction. 7. History of hemorrhagic CVA. 8. Hypertension. 9. Hyperlipidemia. 10. Diabetes mellitus, type 2. 11. History of complete heart block, status post pacemaker. 12. Paroxysmal atrial fibrillation. 13. Chronic anemia. 14. Physical deconditioning. 15. Moderate protein calorie malnutrition. 16. Glaucoma. 17. Hypokalemia PLAN: 08/13 Patient is not safe for any consistency per speech therapy. Will continue IV fluids. Monitor electrolytes closely. Discontinue antibiotics since chest x-ray is negative. Replace potassium. Continue other medications as above. 08/12 Modified barium swallow was consistent with swallow dysfunction. Will continue IV fluids with dextrose. Replace potassium. Repeat chest x-ray in a.m. to rule out aspiration pneumonia. WBC count improving. Will continue ceftriaxone. Recheck labs on a daily basis. Check basic metabolic profile twice a day. GI input appreciated. 08/11 Patient has no IV access at this time after several attempts. Patient also has a dialysis access in the right upper extremity. A PICC line will be placed. Patient has a long history of swallow dysfunction currently on modified diet. Will probably benefit from PEG tube placement to prevent episodes of dehydration. Case discussed with the son who agrees with the above plan of care. Gastroenterology consultation for evaluation for PEG tube. Continue IV fluid with dextrose once PICC line obtained. Continue aspirin. Continue other medications as above. Restart eyedrops. A.m. labs 08/10 Sodium gradually improving. Serum osmolality today was 349. Will continue D5 water at 75 mL an hour. Patient is unsafe for any kind of consistency for now due to altered mentation. Will continue physical therapy/Occupational Therapy/speech therapy evaluation. Continue heparin for DVT prophylaxis. Continue empiric ceftriaxone pending cultures. Monitor BMP twice daily. Continue other medications as above. Will restart home medications once verified.
[2020-08-14] MEDS: Artificial Tear Sol 15 ML BOT EA EYE SCH ×3 (05:40→21:10)
[2020-08-14 06:06] LABS: #Basophils 0.1 thou/uL (0.0-0.2); #Eosinphils 0.3 thou/uL (0.0-0.7); #Monocytes 0.4 thou/uL (0.11-0.59); #Neutrophils 2.6 thou/uL (1.40-6.50); %Basophils 1.4 % (0.0-1.0); %Eosinophils 6.9 % (0.0-10.0); %Lymphocytes 22.9 % (21.0-51.0); %Monocytes 9.1 % (0.0-10.0); %Neutrophils 59.7 % (42.0-75.0); Hemoglobin 9.7 g/dL (14.0-18.0); Mean Corpuscular HGB CONC 30.6 g/dL (32.0-36.0); Mean Corpuscular Hemoglobin 26.6 pg (27.0-31.0); Mean Platelet Volume 9.1 fL (7.4-10.4); Platelet Count 179 thou/uL (130-400); RBC Distribution Width 13.9 % (11.5-14.5); Red Blood Cell (RBC) Count 3.63 mill/uL (4.70-6.10); White Blood Cell (WBC) Count 4.4 thou/uL (4.8-10.8)
[2020-08-14 06:28] LABS: Anion Gap 8 mmol/L (10-20); BUN (Urea Nitrogen) 14 mg/dL (8.4-25.7); Calc. Creatinine Clearance 76 mL/min (70-130); Calcium 7.7 mg/dL (7.8-10.44); Carbon Dioxide 24 mmol/L (23-31); Chloride 121 mmol/L (98-107); Estimated GFR-MDRD 90; Glucose 139 mg/dL (83-110); Potassium 3.6 mmol/L (3.5-5.1); Sodium 149 mmol/L (136-145)
[2020-08-14] MEDS: Heparin 5,000 UNITS/ML VIAL SC SCH ×2 (09:43→20:55)
[2020-08-14] MEDS: Aspirin 300 MG Suppository PR SCH (09:43)
[2020-08-14] MEDS: Cyanocobalamin (Vitamin B-12) 1,000 MCG TAB PO SCH (09:44)
[2020-08-14] MEDS: Folic Acid 1 MG TAB PO SCH (09:44)
[2020-08-14] MEDS: Aspirin 81 mg Enteric Coated Tablet PO SCH (09:44)
[2020-08-14] MEDS: carBAMazepine 200 MG TAB PO SCH ×3 (09:44→20:53)
[2020-08-14] MEDS: DorzolamidE/Timolol 2%/0.5% Ophth Soln 10 ml Bottle EA EYE SCH ×2 (09:45→20:54)
[2020-08-14] MEDS: Potassium Chloride 40 MEQ in Dextrose 5% in Water 1,000 ML IV SCH (12:49)
--- NOTE | 2020-08-14 15:41 | PRG ---
DATE OF SERVICE: 08/14/2020 SUBJECTIVE: This is a 75-year-old male with G-tube placed in the past, presented with dehydration, hypernatremia. He is on IV fluids. He is not taking anything by mouth. Mental status slightly improving. He was not responsive to questions, but today he looks more alert, at least tries to answer some questions tells me. He denies any abdominal pain. OBJECTIVE: GENERAL: He is awake and more alert, but however difficult to really communicate with him because of difficulty understanding. He is on IV fluids. VITAL SIGNS: Afebrile, pulse is 66, blood pressure 127/69. CARDIOVASCULAR SYSTEM: Within normal limits. LUNGS: Within normal limits. ABDOMEN: Soft to palpate. ABDOMEN: Nontender. No organomegaly. No masses. LABORATORY DATA: From today shows the lytes are getting better. Chem-7 shows sodium dropping down to 149, potassium 3.6, chloride 121, BUN is 14, creatinine is 0.88, glucose is 127, and calcium 7.7. RECOMMENDATIONS: 1. Continue IV fluids. 2. We will repeat the swallow study and decide whether he needs a G-tube placement. Job ID: [id number]
--- NOTE | 2020-08-14 18:18 | PDOC.HOSPP ---
- Subjective Encounter Date: 08/14/20 Encounter Time: 10:30 Subjective: Patient seen and examined for encephalopathy due to hypernatremia. Sodium levels improving. Mentation improving as well. No seizures are new focal deficit reported. - Objective Vital Signs & Weight: Vital Signs (12 hours) Temp Pulse Resp BP BP Pulse Ox 08/14/20 17:00 98.9 F 08/14/20 16:38 98.9 F 60 16 129/57 L 99 08/14/20 11:37 97.6 F 66 12 127/69 100 08/14/20 09:00 97.2 F L 08/14/20 07:30 97.2 F L 60 12 123/67 100 Weight Admit Weight 99 lb 12.64 oz Weight 181 lb 12.8 oz I&O: 08/13/20 08/14/20 08/15/20 06:59 06:59 06:59 Intake Total 0 1150 Balance 0 1150 Result Diagrams: 08/14/20 05:45 08/14/20 05:45 Additional Labs: Accuchecks 08/14/20 08/14/20 08/14/20 17:15 11:50 05:27 POC Glucose 146 H 127 H 138 H 08/14/20 08/13/20 00:09 20:16 POC Glucose 161 H 141 H Hospitalist ROS - Review of Systems Respiratory: denies: cough, dry, shortness of breath, hemoptysis, SOB with excertion, pleuritic pain, sputum, wheezing, other Cardiovascular: denies: chest pain, palpitations, orthopnea, paroxysmal noc. dyspnea, edema, light headedness, other - Medication Medications: Active Medications Generic Name Dose Route Start Last Admin Trade Name Freq PRN Reason Stop Dose Admin Artificial Tears 2 drop 08/11/20 14:00 08/14/20 14:41 Artificial Tear Zoe 15 Ml Bot EA EYE 2 drop Q8HR COOPER Administration Aspirin 81 mg 08/12/20 09:00 08/14/20 09:44 Aspirin 81 Mg Enteric Coated Tablet PO Not Given DAILY COOPER Aspirin 300 mg 08/12/20 09:00 08/14/20 09:43 Aspirin 300 Mg Suppository [place] 300 mg DAILY COOPER Administration Carbamazepine 200 mg 08/11/20 15:00 08/14/20 14:42 Carbamazepine 200 Mg Tab PO Not Given TID COOPER Cyanocobalamin 1,000 mcg 10/14/20 09:00 08/14/20 09:44 Cyanocobalamin (Vitamin B-12) 1,000 Mcg Tab PO Not Given DAILY COOPER Dorzolamide/Timolol 0 drop 08/11/20 21:00 08/14/20 09:45 Dorzolamide/Timolol 2%/0.5% Ophth Soln 10 Ml Bottle EA EYE 1 drop Q12HR COOPER Administration Famotidine 20 mg 08/09/20 21:00 08/13/20 20:02 Famotidine/Pf 20 Mg/2ml Vial SLOW IVP 20 mg 2100 COOPER Administration Folic Acid 1 mg 08/10/20 09:00 08/14/20 09:44 Folic Acid 1 Mg Tab PO Not Given DAILY COOPER Heparin Sodium (Porcine) 5,000 units 08/09/20 21:00 08/14/20 09:43 Heparin 5,000 Units/Ml Vial SC 5,000 units Q12HR COOPER Administration Potassium Chloride 40 meq/ 1,020 mls @ 75 mls/hr 08/12/20 18:30 08/14/20 12:49 Dextrose/Water IV 1,020 mls .[id number] COOPER Administration Insulin Human Regular 0 units 08/09/20 20:13 08/10/20 13:41 Insulin Regular 300 Units/3 Ml Vial SC 2 unit .MILD SLIDING SCALE PRN Administration Mild Correctional Scale Latanoprost 2 drop 08/11/20 21:00 08/13/20 20:01 Latanoprost 0.005% Ophth Soln 2.5 Ml Bottle L EYE 2 drop HS COOPER Administration Sodium Chloride 10 ml 08/11/20 21:00 08/14/20 09:45 Flush - Normal Saline 10 Ml Syringe IVF 10 ml Q12HR COOPER Administration - Exam General Appearance: ill appearing Heart: RRR, no gallops Respiratory: no wheezes, no rales Gastrointestinal: soft, non-tender, normal bowel sounds Extremities: no cyanosis Hosp A/P - Plan DVT proph w/SCDs A 75-year-old male with hemorrhagic CVA, currently [facility], presenting with altered mentation. He has severe hypernatremia with elevated osmolality of 349. His sodium was 166 on admission. Sodium level gradually improving. Gastroenterology consulted for evaluation for PEG tube due to swallow dysfunction. Mentation improving. 1. Toxic metabolic encephalopathy, multifactorial. 2. Severe hyperosmolar hypernatremia. 3. Dehydration. 4. Acute kidney injury on chronic kidney disease, stage 2. 5. Recent urinary tract infection, completed antibiotics. 6. Swallow dysfunction. 7. History of hemorrhagic CVA. 8. Hypertension. 9. Hyperlipidemia. 10. Diabetes mellitus, type 2. 11. History of complete heart block, status post pacemaker. 12. Paroxysmal atrial fibrillation. 13. Chronic anemia. 14. Physical deconditioning. 15. Moderate protein calorie malnutrition. 16. Glaucoma. 17. Hypokalemia PLAN: 08/14 Patient was reevaluated by speech therapy today. Will attempt diet with risk. Continue D5 water at 75. Recheck labs in a.m. Will reassess the need for PEG tube in a.m. PICC line to be discontinued at discharge. Continue sliding scale. Continue other medications as above. 08/13 Patient is not safe for any consistency per speech therapy. Will continue IV fluids. Monitor electrolytes closely. Discontinue antibiotics since chest x- ray is negative. Replace potassium. Continue other medications as above. 08/12 Modified barium swallow was consistent with swallow dysfunction. Will continue IV fluids with dextrose. Replace potassium. Repeat chest x-ray in a.m. to rule out aspiration pneumonia. WBC count improving. Will continue ceftriaxone. Recheck labs on a daily basis. Check basic metabolic profile twice a day. GI input appreciated. 08/11 Patient has no IV access at this time after several attempts. Patient also has a dialysis access in the right upper extremity. A PICC line will be placed. Patient has a long history of swallow dysfunction currently on modified diet. Will probably benefit from PEG tube placement to prevent episodes of dehydration. Case discussed with the son who agrees with the above plan of care. Gastroenterology consultation for evaluation for PEG tube. Continue IV fluid with dextrose once PICC line obtained. Continue aspirin. Continue other medications as above. Restart eyedrops. A.m. labs 08/10 Sodium gradually improving. Serum osmolality today was 349. Will continue D5 water at 75 mL an hour. Patient is unsafe for any kind of consistency for now due to altered mentation. Will continue physical therapy/Occupational Therapy/speech therapy evaluation. Continue heparin for DVT prophylaxis. Continue empiric ceftriaxone pending cultures. Monitor BMP twice daily. Continue other medications as above. Will restart home medications once verified.
[2020-08-14] MEDS: Famotidine/PF 20 mg/2ml Vial SLOW IVP SCH (20:54)
[2020-08-14] MEDS: Latanoprost 0.005% Ophth Soln 2.5 ml Bottle L EYE SCH (20:55)
[2020-08-15] MEDS: Potassium Chloride 40 MEQ in Dextrose 5% in Water 1,000 ML IV SCH ×2 (02:05→16:06)
[2020-08-15] MEDS: Artificial Tear Sol 15 ML BOT EA EYE SCH ×3 (05:23→22:01)
--- NOTE | 2020-08-15 05:36 | PDOC.BPN ---
- Brief Progress Note Encounter Date: 08/15/20 Encounter Time: 05:35 Staff report bloody stool this morning. Plan; Discontinue subQ heparin. Discontinue aspirin. SCD for DVT prophylaxis GI is following patient.
[2020-08-15] MEDS ORDERED: Sodium Chloride 0.9% (PF) 10 ML VIAL FS PRN (05:45)
[2020-08-15 05:48] LABS: #Eosinphils 0.3 thou/uL (0.0-0.7); #Lymphocytes 1.2 thou/uL (1.20-3.40); #Monocytes 0.6 thou/uL (0.11-0.59); #Neutrophils 4.5 thou/uL (1.40-6.50); %Basophils 0.5 % (0.0-1.0); %Eosinophils 4.8 % (0.0-10.0); %Lymphocytes 18.2 % (21.0-51.0); %Monocytes 8.5 % (0.0-10.0); Hemoglobin 9.9 g/dL (14.0-18.0); Mean Corpuscular HGB CONC 31.9 g/dL (32.0-36.0); Mean Corpuscular Hemoglobin 27.7 pg (27.0-31.0); Mean Platelet Volume 8.6 fL (7.4-10.4); Platelet Count 163 thou/uL (130-400); RBC Distribution Width 13.8 % (11.5-14.5); Red Blood Cell (RBC) Count 3.56 mill/uL (4.70-6.10); White Blood Cell (WBC) Count 6.6 thou/uL (4.8-10.8)
[2020-08-15 06:18] LABS: Anion Gap 9 mmol/L (10-20); BUN (Urea Nitrogen) 10 mg/dL (8.4-25.7); Calc. Creatinine Clearance 84 mL/min (70-130); Calcium 7.9 mg/dL (7.8-10.44); Carbon Dioxide 22 mmol/L (23-31); Chloride 116 mmol/L (98-107); Estimated GFR-MDRD Greater than 90; Glucose 141 mg/dL (83-110); Sodium 143 mmol/L (136-145)
--- NOTE | 2020-08-15 06:46 | PRG ---
DATE OF SERVICE: 08/13/2020 SUBJECTIVE: Og Bucio is a 75-year-old male, hospitalized with hypernatremia and is being corrected. His serum sodium is slowly coming down. He has seen Dr. Kamaljit Amin for possible endoscopic gastrostomy tube placement. However, the Anesthesia Service felt we had to bring sodium level to normal level before PEG tube can be placed. The patient had a modified-barium swallow and appears that he has aspiration from the study. The patient is awake, but does not verbalize. He is not eating much. He is on IV fluids. He is not OBJECTIVE: VITAL SIGNS: Temperature is 98.4 degrees Fahrenheit, pulse is 68, blood pressure 116/57. GENERAL: He is awake and alert, but does not verbalize. He appears to have tracheostomy scar in the neck. CARDIOVASCULAR SYSTEM: Normal heart sounds. LUNGS: Clear to auscultation. ABDOMEN: Soft and nontender. LABORATORY DATA: WBC 7200, hemoglobin 10.3, hematocrit 32.5, and platelet count 186,000. His chemistry is getting better, sodium is down to 151, potassium 3.9, chloride 121, BUN is 18, and creatinine 1.06. RECOMMENDATIONS: Continue IV hydration and await sodium to come back to normal. If starts eating better, hopefully PEG tube can be avoided. However, Dr. Amin already spoke with patient's son, and son told Dr. Amin he would have to be tied down, otherwise he is going to pull out the G tube. We will await the sodium level to come back to normal and see if he starts eating better. If he does not eat very well, then there is no choice except to put a G tube. Job ID: [id number] MTDD
--- NOTE | 2020-08-15 07:50 | PRG ---
DATE OF SERVICE: 08/13/2020 SUBJECTIVE: This is a 75-year-old male with a previous CVA, status post PEG tube placement and tracheostomy many years ago. Subsequently, the tracheostomy as well as the G tube were removed. He was tolerating oral intake for a while. He was brought in because of altered mental status. The patient is hypernatremic. His serum sodium is slowly coming down with IV fluids. As per the nurses, he does not want to eat or drink anything. Although, he is awake, he does not really want to communicate. OBJECTIVE: VITAL SIGNS: Afebrile. Pulse is 60, blood pressure 116/67. CARDIOVASCULAR SYSTEM: Normal heart sounds. LUNGS: Clear to auscultation. ABDOMEN: Soft. No organomegaly. No tenderness. No masses. CLINICAL IMPRESSION: 1. Altered mental status. 2. Hypernatremia, being corrected. 3. History of cerebrovascular accident with incomplete recovery. RECOMMENDATIONS: 1. Continue IV fluids. 2. Increase p.o. intake. 3. Hopefully, once his serum sodium level comes back to normal, his mental status might improve and might start eating better. However, if the patient refuses to eat after correction of dehydration, may have to consider G-tube. Job ID: [id number] [facility]
[2020-08-15] MEDS: carBAMazepine 200 MG TAB PO SCH ×3 (08:52→20:23)
[2020-08-15] MEDS: Cyanocobalamin (Vitamin B-12) 1,000 MCG TAB PO SCH (08:52)
[2020-08-15] MEDS: Aspirin 300 MG Suppository PR SCH ×2 (08:52→11:10)
[2020-08-15] MEDS: Folic Acid 1 MG TAB PO SCH (08:52)
[2020-08-15] MEDS: Aspirin 81 mg Enteric Coated Tablet PO SCH ×2 (08:52→09:00)
[2020-08-15] MEDS: Pantoprazole 40 MG VIAL IVP SCH ×2 (08:53→20:49)
[2020-08-15] MEDS: DorzolamidE/Timolol 2%/0.5% Ophth Soln 10 ml Bottle EA EYE SCH ×2 (08:54→20:50)
[2020-08-15] MEDS: Heparin 5,000 UNITS/ML VIAL SC SCH (08:56)
--- NOTE | 2020-08-15 09:15 | PDOC.HOSPP ---
- Subjective Encounter Date: 08/15/20 Encounter Time: 09:12 Subjective: no distress , being fed by staff, minimaal intake - Objective Vital Signs & Weight: Vital Signs (12 hours) Temp Pulse Resp BP Pulse Ox 08/15/20 08:11 98.4 F 75 18 144/67 H 98 Weight Admit Weight 99 lb 12.64 oz Weight 181 lb 12.8 oz I&O: 08/14/20 08/15/20 08/16/20 06:59 06:59 06:59 Intake Total 1150 850 Balance 1150 850 Result Diagrams: 08/15/20 05:30 08/15/20 05:30 Additional Labs: Accuchecks 08/15/20 08/14/20 08/14/20 04:43 20:04 17:15 POC Glucose 148 H 166 H 146 H 08/14/20 11:50 POC Glucose 127 H Hospitalist ROS - Medication Medications: Active Medications Generic Name Dose Route Start Last Admin Trade Name Freq PRN Reason Stop Dose Admin Artificial Tears 2 drop 08/11/20 14:00 08/15/20 05:23 Artificial Tear Zoe 15 Ml Bot EA EYE 2 drop Q8HR COOPER Administration Aspirin 81 mg 08/12/20 09:00 08/15/20 09:00 Aspirin 81 Mg Enteric Coated Tablet PO 81 mg DAILY COOPER Administration Aspirin 300 mg 08/12/20 09:00 08/14/20 09:43 Aspirin 300 Mg Suppository SC 300 mg DAILY COOPER Administration Carbamazepine 200 mg 08/11/20 15:00 08/15/20 08:52 Carbamazepine 200 Mg Tab PO 200 mg TID COOPER Administration Cyanocobalamin 1,000 mcg 08/10/20 09:00 08/15/20 08:52 Cyanocobalamin (Vitamin B-12) 1,000 Mcg Tab PO 1,000 mcg DAILY COOPER Administration Dorzolamide/Timolol 0 drop 08/11/20 21:00 08/15/20 08:54 Dorzolamide/Timolol 2%/0.5% Ophth Soln 10 Ml Bottle EA EYE 1 drop Q12HR COOPER Administration Famotidine 20 mg 08/09/20 21:00 08/14/20 20:54 Famotidine/Pf 20 Mg/2ml Vial SLOW IVP 20 mg 2100 COOPER Administration Folic Acid 1 mg 08/10/20 09:00 08/15/20 08:52 Folic Acid 1 Mg Tab PO 1 mg DAILY COOPER Administration Heparin Sodium (Porcine) 5,000 units 08/09/20 21:00 08/15/20 08:56 Heparin 5,000 Units/Ml Vial SC Not Given Q12HR COOPER Potassium Chloride 40 meq/ 1,020 mls @ 75 mls/hr 08/12/20 18:30 08/15/20 02:05 Dextrose/Water IV 1,020 mls .[id number] COOPER Administration Insulin Human Regular 0 units 08/09/20 20:13 08/10/20 13:41 Insulin Regular 300 Units/3 Ml Vial SC 2 unit .MILD SLIDING SCALE PRN Administration Mild Correctional Scale Latanoprost 2 drop 08/11/20 21:00 08/14/20 20:55 Latanoprost 0.005% Ophth Soln 2.5 Ml Bottle L EYE 2 drop HS COOPER Administration Pantoprazole Sodium 40 mg 08/15/20 09:00 08/15/20 08:53 Pantoprazole 40 Mg Vial IVP 40 mg Q12HR COOPER Administration Sodium Chloride 10 ml 08/11/20 21:00 08/15/20 08:55 Flush - Normal Saline 10 Ml Syringe IVF Not Given Q12HR COOPER - Exam Neck: no JVD Heart: irregular Respiratory: CTAB Gastrointestinal: soft, non-distended, normal bowel sounds Extremities: no edema Neurological - other findings: R hemiplegia Hosp A/P (1) Hypernatremia Code(s): E87.0 - HYPEROSMOLALITY AND HYPERNATREMIA Status: Acute (2) Dysphagia Code(s): R13.10 - DYSPHAGIA, UNSPECIFIED Status: Acute Qualifiers: Dysphagia type: unspecified Qualified Code(s): R13.10 - Dysphagia, unspecified (3) Acute metabolic encephalopathy Code(s): G93.41 - METABOLIC ENCEPHALOPATHY Status: Acute (4) Chronic anemia Code(s): D64.9 - ANEMIA, UNSPECIFIED Status: Chronic (5) Diabetes mellitus type 2 in obese Code(s): E11.9 - TYPE 2 DIABETES MELLITUS WITHOUT COMPLICATIONS; E66.9 - OBESITY, UNSPECIFIED Status: Chronic (6) Hypertension Code(s): I10 - ESSENTIAL (PRIMARY) HYPERTENSION Status: Chronic Qualifiers: Hypertension type: essential hypertension Qualified Code(s): I10 - Essential (primary) hypertension (7) DONALD (acute kidney injury) Code(s): N17.9 - ACUTE KIDNEY FAILURE, UNSPECIFIED Status: Resolved - Plan hypernatremia, renal failure resolved suspect will require PEG for nutrition, etc discuss with GI cont current care, cont to monitor renal fcn, Na
[2020-08-15] MEDS: Latanoprost 0.005% Ophth Soln 2.5 ml Bottle L EYE SCH (20:50)
[2020-08-16] MEDS: Potassium Chloride 40 MEQ in Dextrose 5% in Water 1,000 ML IV SCH ×2 (06:01→18:03)
[2020-08-16] MEDS: Artificial Tear Sol 15 ML BOT EA EYE SCH ×3 (06:02→21:31)
--- NOTE | 2020-08-16 06:53 | PRG ---
DATE OF SERVICE: 08/15/2020 SUBJECTIVE: Mr. Bucio is obtunded and not responsive. OBJECTIVE: VITAL SIGNS: Temperature is 98.4, pulse 75, blood pressure 144/67. GENERAL: He is asleep. He is breathing through his mouth. LUNGS: Clear to auscultation bilaterally. HEART: Regular rate and rhythm without murmur. ABDOMEN: Soft, nontender, and nondistended. Bowel sounds are present. EXTREMITIES: No lower extremity edema. LABORATORY DATA: White blood cell count 6.6, hemoglobin 9.9, platelets 163. INR 1.3. Creatinine 0.89. IMPRESSION: 1. Altered mental status. His sodium has returned to normal and yet he remains obtunded. 2. Oropharyngeal dysphagia. He remains at high aspiration risk and is not even able to take anything by mouth for feeds. He does not even move his tongue or attempt to initiate a swallow. RECOMMENDATIONS: 1. I discussed his status with his son, Og Bucio, and his daughter. They would like to proceed with PEG tube placement. I also offered hospice care as another option, but they would like to pursue a PEG tube. The patient has had a PEG tube in the past and has pulled PEG tubes out previously. 2. EGD with PEG tomorrow. 3. Preprocedure antibiotics per protocol. 4. Place an abdominal binder to help reduce the risk for accidental removal of the PEG tube after it is placed. Job ID: [id number]
[2020-08-16] MEDS: Aspirin 81 mg Enteric Coated Tablet PO SCH (07:45)
[2020-08-16] MEDS: Cyanocobalamin (Vitamin B-12) 1,000 MCG TAB PO SCH (07:46)
[2020-08-16] MEDS: Folic Acid 1 MG TAB PO SCH (07:46)
[2020-08-16] MEDS: carBAMazepine 200 MG TAB PO SCH ×3 (07:46→20:03)
[2020-08-16] MEDS: Aspirin 300 MG Suppository PR SCH (08:21)
[2020-08-16] MEDS: DorzolamidE/Timolol 2%/0.5% Ophth Soln 10 ml Bottle EA EYE SCH ×2 (08:23→20:03)
[2020-08-16] MEDS: Pantoprazole 40 MG VIAL IVP SCH ×2 (08:26→20:03)
--- NOTE | 2020-08-16 08:41 | PDOC.HOSPP ---
- Subjective Encounter Date: 08/16/20 Encounter Time: 08:38 Subjective: alert, no complaints - Objective Vital Signs & Weight: Vital Signs (12 hours) Temp Pulse Resp BP Pulse Ox 08/16/20 07:42 98.3 F 61 20 114/57 L 99 Weight Admit Weight 99 lb 12.64 oz Weight 181 lb 12.8 oz I&O: 08/15/20 08/16/20 08/17/20 06:59 06:59 06:59 Intake Total 850 1660 Output Total 1 Balance 850 1659 Result Diagrams: 08/15/20 05:30 08/15/20 05:30 Additional Labs: Accuchecks 08/16/20 08/15/20 08/15/20 05:12 20:49 17:01 POC Glucose 137 H 144 H 142 H 08/15/20 00:47 POC Glucose 120 H Hospitalist ROS - Medication Medications: Active Medications Generic Name Dose Route Start Last Admin Trade Name Freq PRN Reason Stop Dose Admin Artificial Tears 2 drop 08/11/20 14:00 08/16/20 06:02 Artificial Tear Zoe 15 Ml Bot EA EYE 2 drop Q8HR COOPER Administration Aspirin 81 mg 08/12/20 09:00 08/16/20 07:45 Aspirin 81 Mg Enteric Coated Tablet PO Not Given DAILY REPLACED BY [facility] Aspirin 300 mg 08/12/20 09:00 08/16/20 08:21 Aspirin 300 Mg Suppository ND Not Given DAILY COOPER Carbamazepine 200 mg 08/11/20 15:00 08/16/20 07:46 Carbamazepine 200 Mg Tab PO Not Given TID COOPER Cyanocobalamin 1,000 mcg 08/10/20 09:00 08/16/20 07:46 Cyanocobalamin (Vitamin B-12) 1,000 Mcg Tab PO Not Given DAILY COOPER Dorzolamide/Timolol 0 drop 08/11/20 21:00 08/16/20 08:23 Dorzolamide/Timolol 2%/0.5% Ophth Soln 10 Ml Bottle EA EYE 1 drop Q12HR COOPER Administration Ergocalciferol 1.25 mg 08/16/20 09:00 08/16/20 08:21 Ergocalciferol 1.25 Mg(50,000 Units) Cap PO Not Given Q7DAYS COOPER Folic Acid 1 mg 08/10/20 09:00 08/16/20 07:46 Folic Acid 1 Mg Tab PO Not Given DAILY COOPER Potassium Chloride 40 meq/ 1,020 mls @ 75 mls/hr 08/12/20 18:30 08/16/20 06:01 Dextrose/Water IV 1,020 mls .[id number] COOPER Administration Insulin Human Regular 0 units 08/09/20 20:13 08/10/20 13:41 Insulin Regular 300 Units/3 Ml Vial SC 2 unit .MILD SLIDING SCALE PRN Administration Mild Correctional Scale Latanoprost 2 drop 08/11/20 21:00 08/15/20 20:50 Latanoprost 0.005% Ophth Soln 2.5 Ml Bottle L EYE 2 drop HS COOPER Administration Pantoprazole Sodium 40 mg 08/15/20 09:00 08/16/20 08:26 Pantoprazole 40 Mg Vial IVP 40 mg Q12HR COOPER Administration Sodium Chloride 10 ml 08/11/20 21:00 08/16/20 07:47 Flush - Normal Saline 10 Ml Syringe IVF Not Given Q12HR COOPER - Exam General Appearance: awake alert Neck: no JVD Heart: RRR, no murmur Respiratory: CTAB Gastrointestinal: soft, normal bowel sounds Extremities: no edema Hosp A/P (1) Hypernatremia Code(s): E87.0 - HYPEROSMOLALITY AND HYPERNATREMIA Status: Acute (2) Dysphagia Code(s): R13.10 - DYSPHAGIA, UNSPECIFIED Status: Acute Qualifiers: Dysphagia type: unspecified Qualified Code(s): R13.10 - Dysphagia, unspecified (3) Acute metabolic encephalopathy Code(s): G93.41 - METABOLIC ENCEPHALOPATHY Status: Acute (4) Chronic anemia Code(s): D64.9 - ANEMIA, UNSPECIFIED Status: Chronic (5) Diabetes mellitus type 2 in obese Code(s): E11.9 - TYPE 2 DIABETES MELLITUS WITHOUT COMPLICATIONS; E66.9 - OBESI TY, UNSPECIFIED Status: Chronic (6) Hypertension Code(s): I10 - ESSENTIAL (PRIMARY) HYPERTENSION Status: Chronic Qualifiers: Hypertension type: essential hypertension Qualified Code(s): I10 - Essential (primary) hypertension - Plan hypernatremia, renal failure resolved GI requested for PEG discuss with GI cont current care, cont to monitor renal fcn, Na
[2020-08-16] MEDS ORDERED: Ergocalciferol 1.25 MG(50,000 UNITS) CAP PO SCH (09:00)
[2020-08-16 09:21] LABS: Anion Gap 11 mmol/L (10-20); BUN (Urea Nitrogen) 8 mg/dL (8.4-25.7); Calc. Creatinine Clearance 72 mL/min (70-130); Calcium 7.8 mg/dL (7.8-10.44); Carbon Dioxide 21 mmol/L (23-31); Chloride 116 mmol/L (98-107); Estimated GFR-MDRD 85; Glucose 125 mg/dL (83-110); Potassium 4.3 mmol/L (3.5-5.1); Sodium 144 mmol/L (136-145)
[2020-08-16] MEDS ORDERED: PROPOFOL 200 MG/20 ML VIAL ONE (10:03)
--- NOTE | 2020-08-16 12:10 | OP ---
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 PROCEDURES PERFORMED: 1. Esophagogastroduodenoscopy. 2. Attempted percutaneous endoscopic gastrostomy tube placement, aborted secondary to failure to transilluminate. INDICATION: Oropharyngeal dysphagia. MEDICATIONS: 1. See Anesthesia record. 2. Ancef 2 g IV. FINDINGS: After discussion of the risks, benefits, and alternatives of the procedure, informed consent was verified. Pre-endoscopic cardiopulmonary examination was satisfactory. Time-out was performed before sedation was achieved. Sedation was achieved with Anesthesia assistance in the endoscopy unit. The patient remained in the supine position. A Pentax adult upper endoscope was placed into the oropharynx and passed through the cricopharyngeus under direct visualization. The esophageal mucosa appeared normal. The endoscope was advanced into the stomach. Forward and retroflexed views of the entire gastric mucosa were obtained. The gastric mucosa appeared normal except for a scar in the gastric body along the greater curvature, which represents the site of prior PEG tube placement. The endoscope was passed through the pylorus and into the first and second portions of the duodenum, which appeared normal. The scope was then withdrawn back into the gastric lumen and we attempted to find a suitable site for PEG placement. Using one-to-one pressure, I was able to sometimes get good one-to-one pressure at the site of his prior PEG placement, but whenever the patient inspired, this was more difficult. In addition, I was unable to transilluminate from the gastric lumen transcutaneously despite multiple attempts in multiple areas. Due to the inability to transilluminate, it was not felt prudent to proceed with attempted PEG placement. Therefore, PEG placement was aborted. No incisions were made. The upper endoscope was completely withdrawn and the patient allowed to recover. The patient tolerated the procedure well. There were no immediate postprocedure complications. IMPRESSION: 1. Aborted attempt at PEG tube placement, secondary to inability to transilluminate. 2. Scar in the gastric body from prior percutaneous endoscopic gastrostomy tube placement. 3. Otherwise, unremarkable esophagogastroduodenoscopy. RECOMMENDATIONS: 1. Obtain general surgery consultation for PEG tube placement. 2. Please call back anytime with questions or concerns. Job ID: [id number]
[2020-08-16] MEDS: Latanoprost 0.005% Ophth Soln 2.5 ml Bottle L EYE SCH (20:04)
[2020-08-17] MEDS: Artificial Tear Sol 15 ML BOT EA EYE SCH ×3 (05:55→22:08)
[2020-08-17 06:16] LABS: Anion Gap 11 mmol/L (10-20); BUN (Urea Nitrogen) 6 mg/dL (8.4-25.7); Calc. Creatinine Clearance 92 mL/min (70-130); Carbon Dioxide 22 mmol/L (23-31); Chloride 110 mmol/L (98-107); Estimated GFR-MDRD Greater than 90; Glucose 115 mg/dL (83-110); Potassium 4.6 mmol/L (3.5-5.1); Sodium 138 mmol/L (136-145)
[2020-08-17] MEDS ORDERED: Fentanyl 250 MCG/5 ML VIAL ONE (06:49)
[2020-08-17] MEDS ORDERED: Fentanyl 100 MCG/2 ML VIAL ONE ×2 (07:07→08:13)
[2020-08-17] MEDS ORDERED: Promethazine HCl 25 MG/ML VIAL IM PRN (09:32)
[2020-08-17] MEDS ORDERED: Promethazine HCl 25 MG/ML VIAL SLOW IVP PRN (09:32)
[2020-08-17] MEDS ORDERED: Ondansetron HCl/PF 4 MG/2 ML Vial IVP PRN (09:32)
--- NOTE | 2020-08-17 09:46 | OP ---
DATE OF PROCEDURE: 08/17/2020 PREOPERATIVE DIAGNOSIS: Chronic dysphagia. POSTOPERATIVE DIAGNOSIS: Chronic dysphagia. PROCEDURE PERFORMED: Percutaneous endoscopic gastrostomy tube placement. ANESTHESIA: General endotracheal. ESTIMATED BLOOD LOSS: Negligible. INDICATIONS FOR PROCEDURE: This is a 75-year-old man, who has chronic dysphagia secondary to cerebrovascular accident. He had a previous PEG tube and required replacement of gastrostomy tube. Gastroenterology attempted PEG tube placement yesterday without success. The patient was brought to the operating room today for percutaneous endoscopic gastrostomy tube placement, failure of which were to proceed with open gastrostomy. FINDINGS: The previous scar area in the gastric antrum was visualized by endoscopy and PEG tube was without incident. 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 The patient was brought to the operating room, placed in supine position. Following general anesthesia, mouth guard was put in place and endoscope was introduced orally, intubating the esophagus. With gentle insufflation, the scope was directed into the gastric lumen. Scope was passed without problems into proximal duodenum. No peptic ulcerative disease was noted. Scope was then withdrawn, transilluminating the left upper quadrant in the area of the previous gastrostomy site. Skin there was anesthetized with 1% lidocaine. A stab incision was made using 11 scalpel. Introducer needle was then inserted through the incision and advanced into the gastric lumen visualized by endoscopy. Guidewire was passed through this introducer needle and advanced into the gastric lumen and captured with an Endo Snare introduced by endoscope. The guidewire and endoscope were then withdrawn by mouth as a unit. The distal end of the guidewire was then connected to a 20-Somali gastrostomy tube. The other end was pulled out through the skin leaving the mushroom end of the gastrostomy tube abutting the gastric mucosa. Repeat endoscopy confirmed proper sitting of the gastrostomy tube. No active bleeding noted. Photograph of the gastrostomy site was obtained for documentation purposes. The gastrostomy tube was then fashioned to length and secured to the anterior abdominal wall at 3.5 cm using a bolster. The patient tolerated the procedure without any apparent complications. The gastric lumen was desufflated and endoscope was withdrawn, visualizing intact esophageal mucosa. The patient tolerated the procedure without any apparent complication and was returned to recovery room in satisfactory condition. Job ID: [id number]
[2020-08-17] MEDS ORDERED: Glycopyrrolate 0.2 MG/ML 5 ML SYRINGE ONE (09:48)
[2020-08-17] MEDS ORDERED: Rocuronium Bromide 10 MG/ML (10ML VIAL) ONE (09:48)
[2020-08-17] MEDS ORDERED: Ondansetron PF 4 MG/2 ML Vial ONE (09:48)
[2020-08-17] MEDS ORDERED: Dexamethasone 20 MG/5 ML VIAL ONE (09:48)
[2020-08-17] MEDS ORDERED: PROPOFOL 200 MG/20 ML VIAL ONE (09:48)
[2020-08-17] MEDS ORDERED: Succinylcholine Chloride 20 MG/ML 10 ml SYRINGE FS ONE (09:48)
[2020-08-17] MEDS ORDERED: Lidocaine 1% PF 5 ML VIAL ONE (09:48)
[2020-08-17] MEDS: Aspirin 300 MG Suppository PR SCH (11:32)
[2020-08-17] MEDS: Potassium Chloride 40 MEQ in Dextrose 5% in Water 1,000 ML IV SCH ×2 (11:38→21:48)
[2020-08-17] MEDS: Aspirin 81 mg Enteric Coated Tablet PO SCH (11:41)
[2020-08-17] MEDS: Cyanocobalamin (Vitamin B-12) 1,000 MCG TAB PO SCH (11:44)
[2020-08-17] MEDS: carBAMazepine 200 MG TAB PO SCH ×3 (11:44→21:48)
[2020-08-17] MEDS: DorzolamidE/Timolol 2%/0.5% Ophth Soln 10 ml Bottle EA EYE SCH ×2 (11:45→22:07)
[2020-08-17 11:47] LABS: #Eosinphils 0.2 thou/uL (0.0-0.7); #Lymphocytes 0.9 thou/uL (1.20-3.40); #Monocytes 0.5 thou/uL (0.11-0.59); #Neutrophils 5.8 thou/uL (1.40-6.50); %Basophils 0.1 % (0.0-1.0); %Lymphocytes 12.3 % (21.0-51.0); %Monocytes 6.5 % (0.0-10.0); Hemoglobin 11.4 g/dL (14.0-18.0); Mean Corpuscular HGB CONC 30.4 g/dL (32.0-36.0); Mean Corpuscular Hemoglobin 26.8 pg (27.0-31.0); Mean Corpuscular Volume 88.1 fL (78.0-98.0); Mean Platelet Volume 8.7 fL (7.4-10.4); Platelet Count 183 thou/uL (130-400); RBC Distribution Width 14.1 % (11.5-14.5); Red Blood Cell (RBC) Count 4.23 mill/uL (4.70-6.10); White Blood Cell (WBC) Count 7.4 thou/uL (4.8-10.8)
[2020-08-17] MEDS: Folic Acid 1 MG TAB PO SCH (11:47)
[2020-08-17] MEDS: Pantoprazole 40 MG VIAL IVP SCH ×2 (11:47→22:08)
--- NOTE | 2020-08-17 14:12 | PDOC.HOSPP ---
- Subjective Encounter Date: 08/17/20 Encounter Time: 14:10 Subjective: no distress. Post PEG - Objective Vital Signs & Weight: Vital Signs (12 hours) Temp Pulse Resp BP Pulse Ox 08/17/20 10:00 97.5 F L 108 H 18 147/80 H 100 08/17/20 06:35 97.5 F L 63 18 137/64 96 Weight Admit Weight 99 lb 12.64 oz Weight 181 lb 12.8 oz I&O: 08/16/20 08/17/20 08/18/20 06:59 06:59 06:59 Intake Total 1660 750 Output Total 1 Balance 1659 750 Result Diagrams: 08/17/20 11:36 08/17/20 05:45 Additional Labs: Accuchecks 08/17/20 08/17/20 08/17/20 11:52 05:59 00:27 POC Glucose 168 H 111 H 112 H Hospitalist ROS - Medication Medications: Active Medications Generic Name Dose Route Start Last Admin Trade Name Freq PRN Reason Stop Dose Admin Artificial Tears 2 drop 08/11/20 14:00 08/17/20 05:55 Artificial Tear Zoe 15 Ml Bot EA EYE 2 drop Q8HR COOPER Administration Aspirin 81 mg 08/12/20 09:00 08/17/20 11:41 Aspirin 81 Mg Enteric Coated Tablet PO 81 mg DAILY COOPER Administration Aspirin 300 mg 08/12/20 09:00 08/17/20 11:32 Aspirin 300 Mg Suppository DE Not Given DAILY COOPER Carbamazepine 200 mg 08/11/20 15:00 08/17/20 11:44 Carbamazepine 200 Mg Tab PO 200 mg TID COOPER Administration Cyanocobalamin 1,000 mcg 08/10/20 09:00 08/17/20 11:44 Cyanocobalamin (Vitamin B-12) 1,000 Mcg Tab PO 1,000 mcg DAILY COOPER Administration Dorzolamide/Timolol 0 drop 08/11/20 21:00 08/17/20 11:45 Dorzolamide/Timolol 2%/0.5% Ophth Soln 10 Ml Bottle EA EYE 2 drop Q12HR COOPER Administration Ergocalciferol 1.25 mg 08/16/20 09:00 08/16/20 08:21 Ergocalciferol 1.25 Mg(50,000 Units) Cap PO Not Given Q7DAYS COOPER Folic Acid 1 mg 08/10/20 09:00 08/17/20 11:47 Folic Acid 1 Mg Tab PO 1 mg DAILY COOPER Administration Potassium Chloride 40 meq/ 1,020 mls @ 75 mls/hr 08/12/20 18:30 08/17/20 11:38 Dextrose/Water IV 1,020 mls .[id number] COOPER Administration Insulin Human Regular 0 units 08/09/20 20:13 08/10/20 13:41 Insulin Regular 300 Units/3 Ml Vial SC 2 unit .MILD SLIDING SCALE PRN Administration Mild Correctional Scale Latanoprost 2 drop 08/11/20 21:00 08/16/20 20:04 Latanoprost 0.005% Ophth Soln 2.5 Ml Bottle L EYE 2 drop HS COOPER Administration Pantoprazole Sodium 40 mg 08/15/20 09:00 08/17/20 11:47 Pantoprazole 40 Mg Vial IVP 40 mg Q12HR COOPER Administration Sodium Chloride 10 ml 08/11/20 21:00 08/17/20 11:32 Flush - Normal Saline 10 Ml Syringe IVF Not Given Q12HR COOPER - Exam General Appearance: awake alert Neck: no JVD Heart: RRR, no murmur Respiratory: CTAB Gastrointestinal: soft, non-distended, normal bowel sounds Extremities: 1+ LE edema Neurological - other findings: R central 7 palsy, R hemiplegia Hosp A/P (1) Hypernatremia Code(s): E87.0 - HYPEROSMOLALITY AND HYPERNATREMIA Status: Acute (2) Dysphagia Code(s): R13.10 - DYSPHAGIA, UNSPECIFIED Status: Acute Qualifiers: Dysphagia type: unspecified Qualified Code(s): R13.10 - Dysphagia, unspecif ied (3) Acute metabolic encephalopathy Code(s): G93.41 - METABOLIC ENCEPHALOPATHY Status: Acute (4) Chronic anemia Code(s): D64.9 - ANEMIA, UNSPECIFIED Status: Chronic (5) Diabetes mellitus type 2 in obese Code(s): E11.9 - TYPE 2 DIABETES MELLITUS WITHOUT COMPLICATIONS; E66.9 - OBESITY, UNSPECIFIED Status: Chronic (6) Hypertension Code(s): I10 - ESSENTIAL (PRIMARY) HYPERTENSION Status: Chronic Qualifiers: Hypertension type: essential hypertension Qualified Code(s): I10 - Essential (primary) hypertension - Plan hypernatremia, renal failure resolved Post PEG per general surgery meds, nutrion, fluids per PEG cont accu/ss DC planning
[2020-08-17] MEDS: Latanoprost 0.005% Ophth Soln 2.5 ml Bottle L EYE SCH (22:08)
[2020-08-18] MEDS: Artificial Tear Sol 15 ML BOT EA EYE SCH ×3 (04:14→22:06)
[2020-08-18] MEDS: Potassium Chloride 40 MEQ in Dextrose 5% in Water 1,000 ML IV SCH ×2 (05:14→21:07)
[2020-08-18] MEDS: carBAMazepine 200 MG TAB PO SCH (09:11)
[2020-08-18] MEDS: DorzolamidE/Timolol 2%/0.5% Ophth Soln 10 ml Bottle EA EYE SCH ×2 (09:12→22:05)
[2020-08-18] MEDS: Folic Acid 1 MG TAB PO SCH (09:12)
[2020-08-18] MEDS: Aspirin 81 mg Enteric Coated Tablet PO SCH (09:12)
[2020-08-18] MEDS: Cyanocobalamin (Vitamin B-12) 1,000 MCG TAB PO SCH (09:12)
[2020-08-18] MEDS: Aspirin 300 MG Suppository PR SCH (09:12)
[2020-08-18] MEDS: Pantoprazole 40 MG VIAL IVP SCH ×2 (09:13→22:01)
--- NOTE | 2020-08-18 10:17 | PDOC.PALPN ---
Palliative Progress Note - Subjective Opens eyes, but not able to determine orientation as patient is aphagic and as per family has had a significant decline in functional status over past several weeks. Prior to admission was wheel chair bound. S/P peg placement, no residual. - Objective Vital Signs: Vital Signs - Most Recent Temp Pulse Resp BP Pulse Ox 98.0 F 60 16 140/68 99 08/18/20 07:39 08/18/20 07:39 08/18/20 07:39 08/18/20 07:39 08/18/20 07:39 - Physical Exam Constitutional: encephalitic, ill appearing HEENT: EOMI, moist MMs Respiratory: no wheezing, unlabored breathing Cardiovascular: RRR, diminished peripheral pulses Gastrointestinal: soft, non-tender, incontinent Deviation from normal: PEG Genitourinary: incontinent Musculoskeletal: no clubbing Skin: fragile Deviation from normal: non verbal, no purposeful engagement. - Assessment (1) Dysphagia Code(s): R13.10 - DYSPHAGIA, UNSPECIFIED Current Visit: Yes Status: Acute Qualifiers: Dysphagia type: unspecified Qualified Code(s): R13.10 - Dysphagia, unspecified (2) Acute metabolic encephalopathy Code(s): G93.41 - METABOLIC ENCEPHALOPATHY Current Visit: No Status: Acute (3) Altered mental state Code(s): R41.82 - ALTERED MENTAL STATUS, UNSPECIFIED Current Visit: No Status: Acute (4) CKD (chronic kidney disease) stage 3, GFR 30-59 ml/min Current Visit: No Status: Chronic (5) Congestive heart failure Code(s): I50.9 - HEART FAILURE, UNSPECIFIED Current Visit: No Status: Chronic (6) Obesity (BMI 30.0-34.9) Code(s): E66.9 - OBESITY, UNSPECIFIED Current Visit: No Status: Chronic - Plan Plan: Palliative care has communicated with patient son who is MPOA. Family educated on poor meaningful recovery and declining functional status. Discussed PEG feedings and risks involved. Family Goal of Care is to return to long-term setting, continue aggressive measures and therapies. Palliative Care will sign off as teaching performed, and Family continues to have a Goal of Care as stated above. Please also refer to Palliative Care notes in note section. [40] minutes spent on this encounter with >50% of the time in counseling and coordination of care. - ROS Non Response: due to mental status
[2020-08-18] MEDS ORDERED: Aspirin 81 mg Enteric Coated Tablet PER TUBE SCH ×2 (11:05→12:15)
[2020-08-18] MEDS ORDERED: carBAMazepine 200 MG TAB PER TUBE SCH ×2 (11:05→12:15)
[2020-08-18] MEDS ORDERED: Cyanocobalamin (Vitamin B-12) 1,000 MCG TAB PER TUBE SCH ×2 (11:05→12:15)
--- NOTE | 2020-08-18 11:08 | PDOC.HOSPP ---
- Subjective Encounter Date: 08/18/20 Encounter Time: 11:05 Subjective: post PEG, calm, no distress - Objective Vital Signs & Weight: Vital Signs (12 hours) Temp Pulse Resp BP BP Pulse Ox 08/18/20 07:39 98.0 F 60 16 140/68 99 08/18/20 05:23 98.0 F 63 20 135/62 100 08/18/20 00:00 97.8 F 67 20 132/64 97 Weight Admit Weight 99 lb 12.64 oz Weight 181 lb 12.8 oz I&O: 08/17/20 08/18/20 08/19/20 06:59 06:59 06:59 Intake Total 750 900 Output Total 100 Balance 750 800 Result Diagrams: 08/17/20 11:36 08/17/20 05:45 Additional Labs: Accuchecks 08/18/20 08/17/20 08/17/20 05:28 19:58 15:42 POC Glucose 106 H 122 H 182 H 08/17/20 08/16/20 11:52 15:56 POC Glucose 168 H 112 H Hospitalist ROS - Medication Medications: Active Medications Generic Name Dose Route Start Last Admin Trade Name Freq PRN Reason Stop Dose Admin Artificial Tears 2 drop 08/11/20 14:00 08/18/20 04:14 Artificial Tear Zoe 15 Ml Bot EA EYE Not Given Q8HR COOPER Dorzolamide/Timolol 0 drop 08/11/20 21:00 08/18/20 09:12 Dorzolamide/Timolol 2%/0.5% Ophth Soln 10 Ml Bottle EA EYE Not Given Q12HR COOPER Ergocalciferol 1.25 mg 08/16/20 09:00 08/16/20 08:21 Ergocalciferol 1.25 Mg(50,000 Units) Cap PO Not Given Q7DAYS COOPER Folic Acid 1 mg 08/10/20 09:00 08/18/20 09:12 Folic Acid 1 Mg Tab PO 1 mg DAILY COOPER Administration Potassium Chloride 40 meq/ 1,020 mls @ 75 mls/hr 08/12/20 18:30 08/18/20 05:14 Dextrose/Water IV 1,020 mls .[id number] COOPER Administration Insulin Human Regular 0 units 08/09/20 20:13 08/10/20 13:41 Insulin Regular 300 Units/3 Ml Vial SC 2 unit .MILD SLIDING SCALE PRN Administration Mild Correctional Scale Latanoprost 2 drop 08/11/20 21:00 08/17/20 22:08 Latanoprost 0.005% Ophth Soln 2.5 Ml Bottle L EYE Not Given HS COOPER Pantoprazole Sodium 40 mg 08/15/20 09:00 08/18/20 09:13 Pantoprazole 40 Mg Vial IVP 40 mg Q12HR COOPER Administration Sodium Chloride 10 ml 08/11/20 21:00 08/18/20 09:13 Flush - Normal Saline 10 Ml Syringe IVF 10 ml Q12HR COOPER Administration - Exam General Appearance: awake alert Neck: no JVD Heart: RRR Respiratory: CTAB Gastrointestinal: soft, normal bowel sounds Gastrointestinal - other findings: PEG Extremities: no edema Neurological: hemiplegia Neurological - other findings: R Hosp A/P (1) Hypernatremia Code(s): E87.0 - HYPEROSMOLALITY AND HYPERNATREMIA Status: Acute (2) Dysphagia Code(s): R13.10 - DYSPHAGIA, UNSPECIFIED Status: Acute Qualifiers: Dysphagia type: unspecified Qualified Code(s): R13.10 - Dysphagia, unspecified (3) Acute metabolic encephalopathy Code(s): G93.41 - METABOLIC ENCEPHALOPATHY Status: Acute (4) Chronic anemia Code(s): D64.9 - ANEMIA, UNSPECIFIED Status: Chronic (5) Diabetes mellitus type 2 in obese Code(s): E11.9 - TYPE 2 DIABETES MELLITUS WITHOUT COMPLICATIONS; E66.9 - OBESITY, UNSPECIFIED Status: Chronic (6) Hypertension Code(s): I10 - ESSENTIAL (PRIMARY) HYPERTENSION Status: Chronic Qualifiers: Hypertension type: essential hypertension Qualified Code(s): I10 - Essential (primary) hypertension - Plan Radar Signal 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
--- NOTE | 2020-08-18 13:43 | PRG ---
DATE OF SERVICE: 08/18/2020 SUBJECTIVE: This patient was seen on morning rounds. This patient is status post PEG tube placement day 1, was placed yesterday, 08/17/2020. OBJECTIVE: VITAL SIGNS: Temperature 98 Fahrenheit. Pulse 60 beats per minute. Respiratory rate 16. O2 saturation 99 on room air, blood pressure 140/68. GENERAL: The patient is resting comfortably in bed, in no acute distress. ABDOMEN: PEG tube in place with no surrounding erythema or edema. No tenderness to palpation of the abdomen. Abdomen is soft. Gastric contents seen within the PEG tube. LABORATORY DATA: CBC shows a white count of 7.4, hemoglobin and hematocrit 11.4/37.3. ASSESSMENT AND PLAN: Status post percutaneous endoscopic gastrostomy tube placement. No complications. The patient can use the PEG tube for medications and tube feeds. Trauma team will sign off. The patient was seen and evaluated by Dr. Ward during morning rounds. Discussed plan of care with the patient and family who are in agreement. Job ID: [id number] MTDD
[2020-08-18] MEDS: carBAMazepine 200 MG TAB PER TUBE SCH ×2 (16:43→22:01)
[2020-08-18] MEDS: Latanoprost 0.005% Ophth Soln 2.5 ml Bottle L EYE SCH (22:05)
[2020-08-19] MEDS: Artificial Tear Sol 15 ML BOT EA EYE SCH ×2 (05:40→13:59)
[2020-08-19] MEDS: carBAMazepine 200 MG TAB PER TUBE SCH (08:28)
[2020-08-19] MEDS: Pantoprazole 40 MG VIAL IVP SCH (08:28)
[2020-08-19] MEDS: Folic Acid 1 MG TAB PO SCH (08:29)
[2020-08-19] MEDS: DorzolamidE/Timolol 2%/0.5% Ophth Soln 10 ml Bottle EA EYE SCH (08:48)
[2020-08-19] MEDS ORDERED: Cyanocobalamin (Vitamin B-12) 1,000 MCG TAB PER TUBE SCH (09:00)
[2020-08-19] MEDS ORDERED: Aspirin 81 mg Enteric Coated Tablet PER TUBE SCH (09:00)
[2020-08-19] MEDS: Potassium Chloride 40 MEQ in Dextrose 5% in Water 1,000 ML IV SCH (09:39)
[2020-08-19 10:57] VITALS: BP 146/67; TEMP 98.8
--- NOTE | 2020-08-19 13:14 | PDOC.HOSPP ---
- Subjective Encounter Date: 08/19/20 Encounter Time: 11:15 Subjective: Patient seen and examined. No overnight events - Objective Vital Signs & Weight: Vital Signs (12 hours) Temp Pulse Resp BP Pulse Ox 08/19/20 10:55 98.8 F 84 18 146/67 H 100 08/19/20 07:29 98.0 F 65 16 138/66 100 Weight Admit Weight 99 lb 12.64 oz Weight 181 lb 12.8 oz I&O: 08/18/20 08/19/20 08/20/20 06:59 06:59 06:59 Intake Total 900 1014 267 Output Total 100 Balance 800 1014 267 Result Diagrams: 08/17/20 11:36 08/17/20 05:45 Additional Labs: Accuchecks 08/18/20 21:02 POC Glucose 112 H Hospitalist ROS - Review of Systems ROS unobtainable: due to mental status - Medication Medications: Active Medications Generic Name Dose Route Start Last Admin Trade Name Freq PRN Reason Stop Dose Admin Acetaminophen 650 mg 08/09/20 18:58 08/18/20 22:20 Acetaminophen 325 Mg Tab PO 650 mg Q4H PRN Administration Headache/Fever/Mild Pain (1-3) Artificial Tears 2 drop 08/11/20 14:00 08/19/20 05:40 Artificial Tear Zoe 15 Ml Bot EA EYE Not Given Q8HR COOPER Aspirin 81 mg 08/19/20 09:00 08/19/20 08:29 Aspirin 81 Mg Enteric Coated Tablet PER TUBE 81 mg DAILY COOPER Administration Carbamazepine 200 mg 08/18/20 15:00 08/19/20 08:28 Carbamazepine 200 Mg Tab PER TUBE 200 mg TID COOPER Administration Cyanocobalamin 1,000 mcg 08/19/20 09:00 08/19/20 08:29 Cyanocobalamin (Vitamin B-12) 1,000 Mcg Tab PER TUBE 1,000 mcg DAILY COOPER Administration Dorzolamide/Timolol 0 drop 08/11/20 21:00 08/19/20 08:48 Dorzolamide/Timolol 2%/0.5% Ophth Soln 10 Ml Bottle EA EYE Not Given Q12HR COOPER Ergocalciferol 1.25 mg 08/16/20 09:00 08/16/20 08:21 Ergocalciferol 1.25 Mg(50,000 Units) Cap PO Not Given Q7DAYS COOPER Folic Acid 1 mg 08/10/20 09:00 08/19/20 08:29 Folic Acid 1 Mg Tab PO 1 mg DAILY COOPER Administration Potassium Chloride 40 meq/ 1,020 mls @ 75 mls/hr 08/12/20 18:30 08/19/20 09:39 Dextrose/Water IV 1,020 mls .[id number] COOPER Administration Insulin Human Regular 0 units 08/09/20 20:13 08/10/20 13:41 Insulin Regular 300 Units/3 Ml Vial SC 2 unit .MILD SLIDING SCALE PRN Administration Mild Correctional Scale Latanoprost 2 drop 08/11/20 21:00 08/18/20 22:05 Latanoprost 0.005% Ophth Soln 2.5 Ml Bottle L EYE Not Given HS COOPER Pantoprazole Sodium 40 mg 08/15/20 09:00 08/19/20 08:28 Pantoprazole 40 Mg Vial IVP 40 mg Q12HR COOPER Administration Sodium Chloride 10 ml 08/11/20 21:00 08/19/20 08:30 Flush - Normal Saline 10 Ml Syringe IVF 10 ml Q12HR COOPER Administration - Exam General Appearance: NAD, ill appearing Eye: PERRL, anicteric sclera ENT: normocephalic atraumatic, no oropharyngeal lesions Neck: symmetric, no JVD, no thyromegaly Heart: RRR, no murmur, no gallops, no rubs, normal peripheral pulses Respiratory: no wheezes, no rales, no ronchi Gastrointestinal: soft, non-tender, non-distended, normal bowel sounds Gastrointestinal - other findings: PEG tube in place Skin: normal turgor, no lesions Neurological: no new deficit Psychiatric: not oriented Hosp A/P (1) Dysphagia Code(s): R13.10 - DYSPHAGIA, UNSPECIFIED Status: Acute Qualifiers: Dysphagia type: unspecified Qualified Code(s): R13.10 - Dysphagia, unspecified (2) Hypernatremia Code(s): E87.0 - HYPEROSMOLALITY AND HYPERNATREMIA Status: Acute (3) Acute metabolic encephalopathy Code(s): G93.41 - METABOLIC ENCEPHALOPATHY Status: Acute (4) CKD (chronic kidney disease) stage 3, GFR 30-59 ml/min Status: Chronic (5) Diabetes mellitus type 2 in obese Code(s): E11.9 - TYPE 2 DIABETES MELLITUS WITHOUT COMPLICATIONS; E66.9 - OBESITY, UNSPECIFIED Status: Chronic (6) H/O: CVA (cerebrovascular accident) Code(s): Z86.73 - PRSNL HX OF TIA (TIA), AND CEREB INFRC W/O RESID DEFICITS Status: Chronic (7) Hypertension Code(s): I10 - ESSENTIAL (PRIMARY) HYPERTENSION Status: Chronic Qualifiers: Hypertension type: essential hypertension Qualified Code(s): I10 - Essential (primary) hypertension - Plan old records reviewed/req will dc today see discharge kayley
--- NOTE | 2020-08-22 08:24 | DIS ---
DATE OF ADMISSION: 08/09/2020 DATE OF DISCHARGE: 08/19/2020 PRIMARY CARE PHYSICIAN: Dr. Mani Glover. DISCHARGE DISPOSITION: assisted home. PRIMARY DISCHARGE DIAGNOSES: 1. Acute metabolic encephalopathy. 2. Hypernatremia. 3. Oropharyngeal dysphagia, status post PEG tube placement. SECONDARY DISCHARGE DIAGNOSES: Glaucoma, hypertension, dyslipidemia, diabetes, gastroesophageal reflux disease, seizure disorder, stroke, physical deconditioning. PRIMARY PROCEDURE/OPERATION: EGD was done by Dr. Michael and PEG tube was unsuccessful. G-tube was placed surgically. RADIOLOGICAL INVESTIGATION: CT brain was unremarkable. Chest x-ray was unremarkable. Modified barium swallow showed aspiration. SIGNIFICANT LABORATORY DATA: WBC 7.4, hemoglobin 11.4, platelet 183. Sodium 138, creatinine 0.81. Urinalysis normal. COVID-19 negative. Urine culture negative. DISCHARGE MEDICATIONS: Following are scheduled medication; 1. Dorzolamide ophthalmic drops b.i.d. 2. Ferrous sulfate 220 mg t.i.d. 3. MiraLAX 17 g daily. 4. Travatan Z two drops bedtime. 5. Drisdol 1.25 mg every week. 6. Hydralazine 25 mg t.i.d. 7. Aspirin 81 mg daily. 8. Crestor 20 mg at bedtime. 9. Folic acid 1 mg daily. 10. Lantus 10 units at bedtime. 11. Multivitamin one tablet daily. 12. Omeprazole 20 mg p.o. at bedtime. 13. Potassium 20 mEq p.o. daily. 14. Carbamazepine 200 mg t.i.d. 15. Vitamin B12 1000 mcg daily. 16. Vitamin C 500 mg b.i.d. CONTRAINDICATION: None. CODE STATUS: Full code. INPATIENT CONSULT: GI team was consulted for PEG tube placement. Dr. Ward was consulted for J-tube placement. Palliative care team was following. HOSPITAL COURSE: A 75-year-old male who has underlying CVA and oropharyngeal dysphagia and he was not eating or drinking. The patient was brought to the ER because of lethargic condition and he was found with severe hypernatremia and hyperchloremia and he was significantly dehydrated. While in hospital, he was hydrated with dextrose with water solution and subsequently his sodium completely improved. The patient was not able to take p.o. because he was not able to swallow and speech therapy recommended that the patient is not safe for any kind of oral intake. GI was consulted for PEG tube placement. Ultimately, PEG tube was not successful that is why we have to consult General Surgery and they did have J-tube placed. After G-tube, the patient was started on tube feeding and he was tolerating very well. Today, the patient has acceptance to senior care home and he will go back to long term for ongoing care. The patient is seen and examined at bedside today. PHYSICAL EXAMINATION: VITAL SIGNS: Currently, temperature 98.8, pulse 84, respiratory rate 18, saturation 100%, blood pressure 146/67. GENERAL: The patient is disoriented. HEENT: Head, normocephalic and atraumatic. EYES: Pupils are round and reactive to light. NEUROLOGIC: Baseline status. ABDOMEN: J-tube is in place. No peritoneal sign. LUNGS: Clear to auscultation. Paper work for discharge done. Discharge medication reconciliation done. Job ID: [id number]
--- NOTE | 2020-08-22 09:06 | PQF ---
CLINICAL DOCUMENTATION CLARIFICATION FORM: Dear : Ti Doshi Date / Time: 08/22/2020 09:05 Please exercise your independent, professional judgment in responding to the clarification form. Clinical indicators are provided on the bottom of this form for your review Can you please specify the etiology of patients encephalopathy? Please check appropriate box(es): [ x ] Hypernatremia [x ] DONALD [x ] Dehydration [ x ] Sequela of old CVA [ ] Other diagnosis [ ] Unable to determine Physician Signature: Date/Time: For continuity of documentation, please document condition throughout progress notes and discharge summary. Thank You. 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 Brain CT 08/09 [x] Toxic metabolic encephalopathy multifactorial HP 08/09 [x] Subjective: encephalopathy due to severe dehydration PN 08/11 [x] Mental status...still unclear if his deterioration in mental status is secondary to hypernatremia or possibly has a new stroke PN 08/06/16 Present Risk Factors Results and Location in Medical Record [x] 75 years old HP 08/09 [x] Old CVA HP 08/09 [x] DM HP 08/09 [x] CKD HP 08/09 [x] Seizure disorder HP 08/09 [x] Hypernatremia HP 08/09 [x] Dehydration HP 08/09 [x] DONALD HP 08/09 Present Treatments Results and Location in Medical Record [x] Brain CT Collected 08/09 [x] Frequent Neuro check HP 08/09 [x] Monitor and replacement of electrolytes HP 08/09 [x] IVF MAR 08/09 CDS/Dehairing Machine Tender Signature: Carmen Gardunoskye Mena Phone #: [phone] Date/Time: 08/22/2020 09:05 This is a permanent part of the Medical Record [facility]
== END 2020-08-19 14:57 | DRG 56 ==
LOC: ERS 11:22 → T4-B 15:44
PROVIDERS: ADMIT Internal Medicine; ATTEND Internal Medicine
PROC: 02HV33Z Insertion of Infusion Device into Superior Vena Cava, Percutaneous Approach (ICD-10-PCS; principal; 2020-08-11)
PROC: B548ZZA Ultrasonography of Superior Vena Cava, Guidance (ICD-10-PCS; 2020-08-11)
PROC: 0DJ08ZZ Inspection of Upper Intestinal Tract, Via Natural or Artificial Opening Endoscopic (ICD-10-PCS; 2020-08-16)
PROC: 0DH63UZ Insertion of Feeding Device into Stomach, Percutaneous Approach (ICD-10-PCS; 2020-08-17)
DX: I69.398 Other sequelae of cerebral infarction (principal); G92 Toxic encephalopathy; I69.351 Hemiplegia and hemiparesis following cerebral infarction affecting right dominant side; E87.0 Hyperosmolality and hypernatremia; I44.2 Atrioventricular block, complete; N17.9 Acute kidney failure, unspecified; E44.0 Moderate protein-calorie malnutrition; I13.0 Hypertensive heart and chronic kidney disease with heart failure and stage 1 through stage 4 chronic kidney disease, or unspecified chronic kidney disease; H40.9 Unspecified glaucoma; I69.320 Aphasia following cerebral infarction; I48.0 Paroxysmal atrial fibrillation; E11.22 Type 2 diabetes mellitus with diabetic chronic kidney disease; E78.5 Hyperlipidemia, unspecified; E86.0 Dehydration; R15.9 Full incontinence of feces; R32 Unspecified urinary incontinence; D63.1 Anemia in chronic kidney disease; G40.909 Epilepsy, unspecified, not intractable, without status epilepticus; K21.9 Gastro-esophageal reflux disease without esophagitis; E87.6 Hypokalemia; R13.12 Dysphagia, oropharyngeal phase; E66.9 Obesity, unspecified; N18.30 Chronic kidney disease, stage 3 unspecified; I50.9 Heart failure, unspecified; Z20.828 Contact with and (suspected) exposure to other viral communicable diseases; Z99.3 Dependence on wheelchair; Z93.1 Gastrostomy status; Z95.0 Presence of cardiac pacemaker; Z79.82 Long term (current) use of aspirin; Z79.899 Other long term (current) drug therapy; Z93.0 Tracheostomy status; Z68.26 Body mass index [BMI] 26.0-26.9, adult
CPT/HCPCS: 36415; 36416; 36569; 51701; 70450; 71045; 74230; 80048; 80053; 81003; 82274; 83605; 83735; 83930; 83935; 84100; 84484; 85025; 85610; 85730; 87086; 87635; 93005; C1751; C9113; J0690; J0696; J1100; J1644; J1815; J2405; J2704; J3010; J3480; J3490; J7050; J7070; S0028; U0003